=== PATIENT | female | born 1975 | race Caucasian/White ===

== ENCOUNTER 2024-08-02 11:17 | Inpatient (IN) | payer BC, SELFPAY ==
[2024-08-02] VITALS (13 sets, daily range): BP systolic 112–133; BP diastolic 80–98; BMI 23.6; BMI 24.1
--- NOTE | 2024-08-02 08:09 | CON.NEURO ---
Consultation
Order
Date of Consultation: 08/02/24
Requesting Provider: Marlon Tovar MD
Reason for Consult: Stroke alert
pre hospital notification: 7:50 AM
Neurology Consultation Note.
HPI: This is a 49-year-old woman who presented to [facility] with vertigo, imbalance and left-sided motor/sensory deficits. According to the patient she woke up at 5:45 AM in the morning with 'vertigo 'and associated imbalance. She
noted her left side being numb in the car on the way to work prompting her to call EMS at 7:27 AM. Last time seen in the usual state of health�the evening of 08/01/24.
Ms. Estrada states that she started hormonal replacement therapy on 07/27/2024.
As per EMS FS was 174 mg/dL and BP 150s/70s mmHg
ER VS: 125/80, 79, afebrile.
EKG:NSR, QTc Int : 472 ms
Labs: Glucose�157, WBCs�11.4, MCV�100, sodium�131,
CT head wo contrast-no acute abnormalities.
CTA head/neck-no LVO, left vertebral artery occlusion.
PMH: ADHD, insomnia, premenopause, GERD
SH: , light smoker, no history of excessive alcohol use.
FH: father�stroke
All:NKDA
ROS: Positive for left-sided numbness, language dysfunction, vertigo, ataxia
General: Well developed. In no acute distress.
Cardio: Regular rate and rhythm. Extremities are without cyanosis or edema.
Neuro:
Mental Status: Alert, oriented to self, place. Poor attention. Mild expressive aphasia (hand instead of global). Intermittent perseverations. Nonfluent. Follows simple requests. No hemineglect.
Cranial Nerves: Pupils are equally round and reactive to light. EOMs full. Visual sanchez full to confrontation. Face symmetric. Normal hearing AU. No dysarthria.
Motor: Left arm�drift to the bed but does not hit bed in 10 seconds. Left leg�drifts to the bed in less than 5 seconds. Right arm and leg�full strength.
Sensory: Limited due to poor attention.
Coordination: Left dysmetria in proportion to left arm weakness.
Gait: deferred
Assessment and Plan:
I. Acute basial artery distribution stroke. Likely etiology-embolic. Not a candidate for IV TNK due to timing of symptoms onset.
II. Left vertebral artery occlusion.
III. Hyperglycemia
IV. Prolonged QTc interval
-Continue Telemetry monitoring.
-Aspiration precautions.
-TTE with bubble studies
-Start ASA 81 mg QD indefinitely.
-Plavix load followed by Plavix 75 mg QD for 21 days.
-Lipitor 40 mg QHS.
-Please check HbA1C, LDL, ua tox
-D/c HRT
-PT.
-DVT prophylaxis.
I personally reviewed all radiology and labs along with past medical records pertinent to current medical problems. Total time spent in patient care is 60 minutes.
Thank you for allowing us to participate in the care of this patient. We will continue to follow. Please do not hesitate to contact us with any questions or concerns.
Subjective/Objective
Subjective Data
Date of Service: August 02, 2024
Objective Data
Vital Signs
Pulse Resp Pulse Ox
79 15 99
08/02/24 08:05 08/02/24 08:05 08/02/24 08:05
Patient Allergies
No Known Allergies Allergy (Unverified 08/02/24 08:05)
Medications
-
Home Medications
�Medication �Instructions �Recorded
esomeprazole magnesium 40 mg 40 mg PO DAILY 08/02/24
capsule,delayed release (Nexium)
estradiol 1 mg tablet 1 mg PO DAILY 08/02/24
eszopiclone 3 mg tablet (Lunesta) 3 mg PO HSPRN PRN sleep 08/02/24
famotidine 40 mg tablet (Pepcid) 40 mg PO HS 08/02/24
lisdexamfetamine 40 mg capsule 40 mg PO DAILY 08/02/24
(Vyvanse)
spironolactone 50 mg tablet 50 mg PO DAILY 08/02/24
Vital Signs and Labs
-
Vital Signs and Labs:
Vital Signs
Temp Pulse Resp BP Pulse Ox
36.6 C 84 19 125/80 99
08/02/24 08:29 08/02/24 08:16 08/02/24 08:16 08/02/24 08:22 08/02/24 08:05
Lab Results
08/02/24 08:24
08/02/24 08:24
Sodium 131 mmol/L (135-145) L 08/02/24 08:24
Potassium 4.3 mmol/L (3.5-5.1) 08/02/24 08:24
BUN 17 mg/dl (7-17) 08/02/24 08:24
Glucose 157 mg/dl (70-99) H 08/02/24 08:24
Calcium 8.5 mg/dl (8.4-10.2) 08/02/24 08:24
Home Medications
-
Home Medications
diphenhydramine 25 mg-acetaminophen 500 mg tablet (Acetaminophen PM) 1 tab PO HSPRN PRN sleep 08/02/24
esomeprazole magnesium 40 mg capsule,delayed release (Nexium) 40 mg PO DAILY 08/02/24
estradiol 1 mg tablet 1 mg PO DAILY 08/02/24
eszopiclone 3 mg tablet (Lunesta) 3 mg PO HS 08/02/24
famotidine 40 mg tablet (Pepcid) 40 mg PO HS 08/02/24
lisdexamfetamine 40 mg capsule (Vyvanse) 40 mg PO DAILY 08/02/24
spironolactone 50 mg tablet 50 mg PO DAILY 08/02/24
[2024-08-02 08:17] LABS: Glucose - Point of Care 152 mg/dl (70-99)
[2024-08-02 08:34] LABS: % Basophils 0.4 % (0-2); % Eosinophils 0.7 % (0-6); % Immature Granulocytes 0.6 % (0-0.5); % Lymphocytes 21.5 % (20.5-51.1); % Monocytes 6.2 % (1.7-9.3); % Neutrophils 70.6 % (42.2-75.2); Absolute Basophils 0.1 10^3/uL (0-0.2); Absolute Eosinophils 0.1 10^3/uL (0-0.7); Absolute Immature Granulocytes 0.1 10^3/uL (0-0.05); Absolute Lymphocytes 2.5 10^3/uL (1.2-3.4); Absolute Monocytes 0.7 10^3/uL (0.1-0.6); Hematocrit 36.3 % (37.0-47.0); Hemoglobin 12.6 g/dL (12.0-16.0); Mean Corp Hgb Conc. 34.7 g/dL (33.0-37.0); Mean Corpuscular Hgb 34.7 pg (27.0-31.0); Mean Platelet Volume 10.3 fL (7.4-10.4); Nucleated Red Blood Cells % 0 %; Platelet Count 276 10^3/uL (130-400); Red Blood Cell Count 3.63 10^6/uL (4.20-5.40); White Blood Cell Count 11.4 10^3/uL (4.8-10.8)
[2024-08-02 08:51] LABS: ALT (SGPT) 32 U/L (0-35); AST (SGOT) 31 U/L (14-36); Albumin 3.5 g/dl (3.5-5.0); Alkaline Phosphatase 81 U/L (38-126); Blood Urea Nitrogen 17 mg/dl (7-17); Calcium 8.5 mg/dl (8.4-10.2); Carbon Dioxide 24 mmol/L (22-30); Chloride 100 mmol/L (98-107); Glucose 157 mg/dl (70-99); Potassium 4.3 mmol/L (3.5-5.1); Sodium 131 mmol/L (135-145); Total Bilirubin 0.3 mg/dl (0.2-1.3); Total Protein 5.8 g/dl (6.3-8.2); eGFR > 60.00
--- NOTE | 2024-08-02 08:59 | ED.CVA ---
History of Present Illness
General
Chief Complaint: CVA/TIA Symptoms
Source: patient and ambulance crew
Exam Limitations: none
Time Seen by Provider: 08/02/24 07:56
Nursing documentation reviewed up to this point in time: agreed with
Onset of Stroke Symptoms
Onset of symptoms known: Yes
Date of onset of symptoms: 08/02/24
History of Present Illness
History of Present Illness:
49-year-old female with a past medical history of GERD presents to the ER for evaluation of left-sided weakness and dizziness; presents via EMS as a prehospital stroke alert. Patient reports that she woke up this morning and she felt dizzy when she
was putting on her shoes like she was off balance. She said she had some nausea and vomiting. She says that she tried to drive herself to work but on the way to work she started to develop left arm weakness and paresthesias. She pulled over and
called EMS. Per EMS she was having some repetitive questioning and expressive aphasia and they thought that her speech was slightly slurred and she had a slight left facial droop. Patient cannot remember what time she went to bed last night. She
says this is never happened before. She is not on any blood thinners; only new medication is estradiol which she started for hormone replacement therapy 2 days ago.
Review of Systems
Review of Systems
All Other Systems: ROS reviewed and negative except as documented in HPI and ROS
Constitutional: Denies fever
Respiratory: Denies trouble breathing
Cardiac: Denies chest pain
ABD/GI: Denies abdominal pain
: Denies flank pain
Musculoskeletal: Denies neck pain or back pain
Neurological: Reports dizzy, weakness and numbness; Denies headache
Phy Exam
Physical Exam
Physical Exam:
General: Awake, alert, oriented x3; no acute distress
Head: Normocephalic, atraumatic
Eyes: Conjunctiva normal, EOMI, pupils equal round and reactive to light bilaterally
Throat: Airway intact, handling secretions
Neck: Trachea midline, supple without meningismus
Lungs: Clear to auscultation bilaterally, no wheezing, rales, rhonchi
Heart: Regular rate and rhythm, no murmurs, gallops, or rubs
Abd: Soft, non distended, nontender
Neuro: Very subtle droop at the corner of the mouth on the left; very mild expressive aphasia, no dysarthria; slight drift in the left upper and left lower extremity
Skin: no rash
Extremities: No edema in extremities, equal pulses in all extremities
Scores
NIH Stroke Score
Level of Consciousness: 0 - Alert
LOC Questions: 0-Answers both correctly
LOC Commands: 0-Performs both correctly
Best Horizontal Gaze: 0-Normal
Visual Sinclair: 0=Normal, no visual loss
Facial Palsy: 1=Minor paralysis
Motor - Right Arm: 0=No drift 10 seconds
Motor - Left Arm: 1=Drift < 10 seconds
Motor - Right Le-No drift 5 seconds
Motor - Left Le-Drift < 5 seconds
Limb Ataxia: 0-Absent
Sensation: 0-Normal
Best Language: 1-Mild aphasia
Dysarthria: 0-Normal
Extinction and Inattention: 0-No abnormality
Total Score:: 4
Thrombolytic Contraindication
Inclusion and Exclusion criteria reviewed: Yes
Reasons for NON-Tx with Thrombolytics ABSOLUTE Exclusions: Greater than 4.5 hrs from onset of sxs
Heart Failure Risk
Heart Failure Risk Score: Not Applicable
Heart Score for Chest Pain Patients
STEMI patient?: Not applicable
Withdrawal Assessment of Alcohol
Withdrawal Assessment Completed?: Not applicable
Course
Orders/Labs/Results
Orders:
Orders
08/02/24 07:56
Electrocardiogram (*1) Stat
Reason for Study: Other
Other Reason for Exam: neuro symptoms
CT HEAD STROKE ALERT W/o Cont Urgent
Comment:
Reason For Exam: L weakness, aphasiam, L facial droop
CT HEAD/NECK ANG STROKE ALERT Urgent
Comment:
Reason For Exam: L weakness, aphasiam, L facial droop
Bedside Glucose- Treatment ONCE
Cardiac Monitoring- Treatment ONCE
EKG- Treatment ONCE
IV Insert/Care/Rem.- Treatment PRN
08/02/24 07:57
NEUROLOGY CONSULT Urgent
Consulting Provider: Yesica Boston
Was physician already notified: Yes
08/02/24 08:24
Complete Blood Count/With Diff Urgent
Comprehensive Metabolic Panel Urgent
08/02/24 08:58
Aspirin 325 mg PO NOW STA
Clopidogrel Bisulfate [Plavix] 75 mg PO NOW STA
Abnormal Lab Results
08/02/24 08/02/24
08:15 08:24
WBC 11.4 H 10^3/uL
(4.8-10.8)
RBC 3.63 L 10^6/uL
(4.20-5.40)
Hct 36.3 L %
(37.0-47.0)
MCV 100.0 H fL
(81.0-99.0)
MCH 34.7 H pg
(27.0-31.0)
Abs Immat Gran (auto) 0.1 H 10^3/uL
(0-0.05)
Absolute Neuts (auto) 8.0 H 10^3/uL
(1.4-6.5)
Absolute Monos (auto) 0.7 H 10^3/uL
(0.1-0.6)
Immature Gran % 0.6 H %
(0-0.5)
Sodium 131 L mmol/L
(135-145)
Glucose 157 H mg/dl
(70-99)
Total Protein 5.8 L g/dl
(6.3-8.2)
POC Glucose 152 H mg/dl
(70-99)
08/02/24 08:24
08/02/24 08:24
Vital Signs
Initial and Last Documented VS:
Initial Vital Signs
Pulse Resp Pulse Ox
79 15 99
08/02/24 08:05 08/02/24 08:05 08/02/24 08:05
Last Documented Vital Signs
Temp Pulse Resp BP Pulse Ox
36.6 C 84 19 125/80 99
08/02/24 08:29 08/02/24 08:16 08/02/24 08:16 08/02/24 08:22 08/02/24 08:05
MDM/Problems Addressed
Differential Diagnosis Includes:
Stroke, seizure, brain mass, MS, complex migraine
MDM/Problems Addressed:
49-year-old female presents as a prehospital stroke alert�woke up with dizziness which progressed to left arm weakness and numbness and speech difficulties. Vitals and exam as above. She was taken directly for CT CT head negative for any acute
pathology. Seen by neurology at bedside proceeded with CTA head and neck which showed small vertebral occlusion which reconstitutes distally unclear chronicity. No other acute pathology noted. Usual labs sent off and no clinically significant
abnormalities. Her symptoms have slightly improved but not resolved. Discussed with neurology at length about possibility of tenecteplase treatment�unfortunately with wake-up symptoms and unclear onset patient not a good candidate for tenecteplase
and neurology recommended holding off. Will instead treat with aspirin and Plavix. Admit for continued neurochecks and workup. Case discussed with hospitalist.
Chronic conditions affecting care:
Hormone replacement therapy�high risk for thrombosis
*Radiology
Radiology exam reviewed: radiology read reviewed
*Pulse Oximetry
Patient hypoxic: no
*Critical Care Note
Total Time (30-74mins, 75-104mins- exclusive of procedures): Not Applicable
Data Reviewed
Source: patient and ambulance crew
Prescriptions/Medications Considered But Not Given:
Consider tenecteplase as above
Patient Management
Discussion with other providers: Hospitalist (Discussed with hospitalist), Cad Drafter (Discussed with neurologist) and Radiologist (Discussed with radiologist)
Escalation/DeEscalation of care consider admission/obs:
Admission indicated
ED Attending Note
-
Portions of this chart may have been created with voice recognition software.� Occasional wrong word or��sound alike� substitutions may have occurred due to the inherent limitations of voice recognition software.
Discharge Plan
Departure
Patient Disposition: Admit
Date of Disposition: 08/02/24
Time of Disposition: 08:58
Admit to doctor: Landon
Presentation/result/management discussed w/ accepting MD/DO: Hospitalist
Discharge Problem:
Acute CVA (cerebrovascular accident)
Prescriptions:
No Action
famotidine [Pepcid] 40 mg Tablet
40 mg PO HS
estradiol 1 mg Tablet
1 mg PO DAILY
esomeprazole magnesium [Nexium] 40 mg Capsule,Delayed Release(Dr/Ec)
40 mg PO DAILY
spironolactone 50 mg Tablet
50 mg PO DAILY
eszopiclone [Lunesta] 3 mg Tablet
3 mg PO HS
lisdexamfetamine [Vyvanse] 40 mg capsule
40 mg PO DAILY
diphenhydramine-acetaminophen [Acetaminophen PM] 25-500 mg Tablet
1 tab PO HSPRN PRN (Reason: sleep)
Interventions
Interventions:
ED- Fall Risk Assessment Last Done: 08/02/24 08:29
*ED COVID-19 Vaccine History Last Done: 08/02/24 08:14
ED- Pulmonary Assessment Last Done: 08/02/24 08:02
ED- Neurological Assessment Last Done: 08/02/24 08:14
ED- Cardiac Assessment Last Done: 08/02/24 08:22
ED Swallowing Screen Last Done: 08/02/24 09:00
Discharge Date and Time
Print Language: KISWAHILI
[2024-08-02] MEDS: PLAVIX 75 MG PO (09:02)
[2024-08-02] MEDS: ASPIRIN 325 MG PO (09:03)
[2024-08-02 10:28] LABS: TSH Reflex To Free T4 1.35 uIU/ml (0.47-4.68)
[2024-08-02] MEDS: ZOFRAN 4 MG IV ×2 (11:04→19:35)
[2024-08-02 11:23] LABS: HDL Cholesterol 49 mg/dl; LDL Cholesterol, Calculated 127 mg/dl; Total Cholesterol 199 mg/dl (50-199); Triglyceride 119 mg/dl (10-149); Very Low Density Lipoprotein 23 mg/dl (0-30)
[2024-08-02] MEDS: MOTRIN 200 MG PO (11:25)
[2024-08-02 11:51] LABS: Glycohemoglobin (HgbA1c) 5.3 % (4.0-5.6)
--- NOTE | 2024-08-02 12:07 | HPS.HSE ---
Family Physician
-
Family Physician: Suman Alexandre
Chief Complaint
-
Dizziness and left-sided paresthesias
History of Present Illness
Ms. Estrada is a 49-year-old female with a medical history of GERD and ADHD who presented with dizziness and left-sided paresthesias. She first noticed her symptoms after getting out of bed in the morning and was having balance difficulties
walking down the hallway, she fell that she kept leaning to 1 side. She then felt particularly dizzy when bending over to tie her shoes. She denies initial headaches, blurry vision, chest pain, focal weakness, or difficulty breathing. However,
when driving to work she developed left chest discomfort that radiated down her left arm and was also present in her left leg. She describes the discomfort as tingling but she did not experience any weakness. When she arrived at work, she called
EMS who transported her to [facility]. Per EMS, she had some repetitive questioning and expressive aphasia, and reported mild left-sided facial droop. Of note she recently was started on estradiol hormone replacement therapy this past
July 27. She denies any recent illness or sick contacts. She denies tinnitus, hearing loss, sinus congestion, or fullness in her ears. She denies any surgical history. She is a half a pack per day current smoker x 20 years. She
denies alcohol use. Family history is significant for father with multiple CVAs who ultimately of complications from strokes in his early 60s.
In the ED, she was hemodynamically stable. A prehospital stroke alert had been called. Her NIH stroke score was 4, minor left facial droop, mild left arm drift, mild left leg drift, mild aphasia. CT imaging of her head and neck showed small
caliber left vertebral artery occlusion just distal to its origin with reconstitution in C1, otherwise normal. Thrombolytics were contraindicated considering unclear time of symptom onset. She was loaded with aspirin and Plavix. Labs were
remarkable for mild hyponatremia with a sodium of 131 and a mild leukocytosis of 11.4. She developed worsening dizziness with associated nausea in the ED and had an episode of vomiting, after which she developed a left-sided headache. She has now
been admitted for further evaluation and management of suspected CVA.
Medical History
Past Medical History
Past Medical History: Reports GERD and Other (ADHD)
Past Surgical History: Reports None
Social History
Tobacco: Smoker (Half a pack per day x 20 years)
Alcohol: Occasional
Drug: None
Personal:
Living: With Family
Employment: Employed
Family History
Family History: Other (Father had multiple strokes before age 65, ultimately from complications of strokes)
Allergies / Home Medications
Allergies reflects when Allergies were last updated in [employer].
Home Medications with original date entered in [employer]
Allergy/Medication List:
No known allergies
Review of Systems
-
History Source: Patient
A 12 point ROS was completed and negative except as noted: Yes
Abdomen/GI: Reports Nausea and Vomiting
Neurological: Reports Dizzy, Headache and Numbness (Left upper or lower extremities)
Physical Exam
Vital Signs
Vital Signs
Temp Pulse Resp BP Pulse Ox
97.5 F 73 23 120/80 99
08/02/24 10:03 08/02/24 11:00 08/02/24 11:00 08/02/24 11:00 08/02/24 11:00
Physical Exam
General: Well Developed and Well Nourished
HEENT: NormoCephalic and Atraumatic
Respiratory: Clear and Non Labored Respirations
Cardiac: S1/S2 and Regular Rhythm
GI: Soft and Non Tender
Musculoskeletal: No Cyanosis and No Edema
Skin: Warm and Dry
Neuro: Awake, Alert and Nonfocal/grossly intact
Laboratory Results
-
08/02/24 08:24
08/02/24 08:24
Laboratory Results
Total Bilirubin 0.3 mg/dl (0.2-1.3) 08/02/24 08:24
AST 31 U/L (14-36) 08/02/24 08:24
ALT 32 U/L (0-35) 08/02/24 08:24
Alkaline Phosphatase 81 U/L (38-126) 08/02/24 08:24
Impression/Plan
-
Gen-AAOx3, NAD
HEENT-NC, AT, anicteric, clear oral mm
Neck-supple
CV-reg, no M, +S1/S2
Lungs-clear B/L
Abd-soft, NT, ND
Musculoskeletal-no edema, no deformity
Skin-warm and dry
Neuro-grossly non-focal
Psych-calm, cooperative
Ms. Estrada is a 49-year-old female with a medical history of GERD and ADHD who presented with dizziness and left-sided paresthesias. She first noticed her symptoms after getting out of bed in the morning and was having balance difficulties
walking down the hallway, she fell that she kept leaning to 1 side. She then felt particularly dizzy when bending over to tie her shoes. When driving to work she developed left chest tingling that radiated down her left arm and was also present in
her left leg. When she arrived at work, she called EMS who transported her to [facility]. Per EMS, she had some repetitive questioning and expressive aphasia, and reported mild left-sided facial droop. Of note she recently was started on
estradiol hormone replacement therapy this past July 27.
In the ED, she was hemodynamically stable. A prehospital stroke alert had been called. Her NIH stroke score was 4, minor left facial droop, mild left arm drift, mild left leg drift, mild aphasia. CT imaging of her head and neck showed small
caliber left vertebral artery occlusion just distal to its origin with reconstitution in C1, otherwise normal. Thrombolytics were contraindicated considering unclear time of symptom onset. She was loaded with aspirin and Plavix. Labs were
remarkable for mild hyponatremia with a sodium of 131 and a mild leukocytosis of 11.4. She developed worsening dizziness with associated nausea in the ED and had an episode of vomiting, after which she developed a left-sided headache. She has now
been admitted for further evaluation and management of suspected CVA.
Dizziness and left-sided paresthesias:
-Concern for CVA
-CT imaging shows small caliber left vertebral artery occlusion just distal to its origin with reconstitution in C1, otherwise normal
-Loaded with aspirin and Plavix in the ED
-Will obtain MRI brain
-Follow-up further recommendations from neurology
-PT/OT
-Supportive care with antiemetics and meclizine as needed
-Recommend discontinuing estradiol supplementation for now, which she had been taking for control of perimenopausal symptoms
Tobacco use:
-Encourage smoking cessation, nicotine patch provided
CODE STATUS: Full code
[2024-08-02] MEDS: NSS (PRESERVATIVE FREE) 0.5 ML IV (12:52)
[2024-08-02] MEDS: ATIVAN 1 MG IV (12:52)
--- NOTE | 2024-08-02 13:00 | PTCARENOTE ---
Received pt from ED. Assist from stretcher to bed, L sided weakness and ataxia of L leg noted. Pt AOx3. NIHSS of 1. Denies MOSES or dizziness. VSS. MRI ordered, pt states she requires Ativan prior to study. notified. 1mg IV Ativan given and pt sent
to MRI.
--- NOTE | 2024-08-02 15:44 | PTOTSP ---
Speech Therapy Assessment
Oral/pharyngeal swallowing, and expressive and receptive language skills deemed within functional limits.
Recommend:
Continue current diet of regular solids and thin liquids
No skilled ST indicated.
Information provided to patient regarding possible high level cognitive deficits that may be noted after returning to regular routine that could be addressed with a comprehensive assessment in outpatient setting.
--- NOTE | 2024-08-02 16:00 | PTCARENOTE ---
Dr Thomas at bedside to discuss MRI results to pt and family.
[2024-08-02 16:25] LABS: Amphetamines Positive (Negative); Barbiturates Negative (Negative); Benzodiazepines Positive (Negative); Buprenorphine Negative (Negative); Cocaine Negative (Negative); Marijuana Negative (Negative); Methadone Negative (Negative); Methamphetamines Negative (Negative); Opiates Negative (Negative); Phencyclidine Negative (Negative); Tricyclic Antidepressants Negative (Negative)
[2024-08-02 16:43] LABS: Fentanyl, Urine Negative (Negative)
[2024-08-02] MEDS: LOVENOX 40 MG SC (17:07)
[2024-08-02] MEDS: LIPITOR 40 MG PO (17:07)
--- NOTE | 2024-08-02 17:30 | W.PN.UPDATE ---
Update Note
Progress Note Update
Brain MRI showed a large left cerebellar hemisphere infarct.
Recommend ICU transfer for hydrocephalus which. Patient's attending and nurse were notified.
Filiberto Boston
Neurology
--- NOTE | 2024-08-02 18:00 | PTCARENOTE ---
Dr Boston requesting pt be transferred to ICU for closer monitor. Hospitalist made aware. Nursing supervisor channel process notified. Awaiting orders.
[2024-08-02] MEDS: TYLENOL 650 MG PO (19:01)
--- NOTE | 2024-08-02 20:15 | PTCARENOTE ---
Pt arrived to ICU room 3358 from 1 Acute via stretcher at approx 1915. Pt is A/O x4. Q1 hour neurological checks ordered, NIH score is 0 at this time. See stroke/neuro flowsheet for full details. Pt oriented to room and call sawyer. Physical
assessment completed, see nursing shift assessment flowsheet for full details. Pt experiencing nausea and has vomited x2 so far since arrival to ICU, medicated with PRN Zofran, see EMAR.
[2024-08-03] VITALS (24 sets, daily range): BP systolic 121–151; BP diastolic 80–97; PULSE 83–84; O2SAT 96; BMI 23.8
[2024-08-03] MEDS: ULTRAM 50 MG PO (00:52)
--- NOTE | 2024-08-03 01:08 | PTCARENOTE ---
Physical and neurological assessments unchanged. Pt reports headache which she has had most of the shift, Tylenol did not help at all, discussed with Orville JOEL, x1 order for Tramadol obtained, med administered, see EMAR. Pt now resting with
eye mask on, lights off.
[2024-08-03] MEDS: PROTONIX 40 MG PO (03:19)
[2024-08-03 05:02] LABS: % Basophils 0.4 % (0-2); % Eosinophils 0.4 % (0-6); % Immature Granulocytes 0.4 % (0-0.5); % Lymphocytes 18.6 % (20.5-51.1); % Neutrophils 73.2 % (42.2-75.2); Absolute Basophils 0.1 10^3/uL (0-0.2); Absolute Eosinophils 0.1 10^3/uL (0-0.7); Absolute Immature Granulocytes 0.1 10^3/uL (0-0.05); Absolute Lymphocytes 2.6 10^3/uL (1.2-3.4); Absolute Neutrophils 10.2 10^3/uL (1.4-6.5); Hematocrit 38.8 % (37.0-47.0); Hemoglobin 13.3 g/dL (12.0-16.0); Mean Corp Hgb Conc. 34.3 g/dL (33.0-37.0); Mean Corpuscular Volume 99.2 fL (81.0-99.0); Mean Platelet Volume 10.3 fL (7.4-10.4); Nucleated Red Blood Cells % 0 %; Platelet Count 295 10^3/uL (130-400); Red Blood Cell Count 3.91 10^6/uL (4.20-5.40); Red Cell Dist. Width 11.9 % (11.5-14.5); White Blood Cell Count 13.9 10^3/uL (4.8-10.8)
[2024-08-03 05:20] LABS: Blood Urea Nitrogen 16 mg/dl (7-17); Calcium 9.1 mg/dl (8.4-10.2); Carbon Dioxide 23 mmol/L (22-30); Chloride 97 mmol/L (98-107); Estimated Creatinine Clearance 81 ml/min; Glucose 94 mg/dl (70-99); Potassium 4.4 mmol/L (3.5-5.1); Sodium 130 mmol/L (135-145); eGFR > 60.00
[2024-08-03 05:21] LABS: INR 0.94; PT 13.1 Sec (11.4-14.6)
[2024-08-03 06:02] LABS: APTT 28.1 Sec (23.4-35.0)
--- NOTE | 2024-08-03 06:24 | PTCARENOTE ---
Assessment unchanged, neurological assessment unchanged. SR 70s on monitor.
[2024-08-03] MEDS: PLAVIX 75 MG PO (07:31)
[2024-08-03] MEDS: LOW STRENGTH ASPIRIN 81 MG PO (07:31)
[2024-08-03] MEDS: ALDACTONE 50 MG PO (07:31)
--- NOTE | 2024-08-03 07:42 | CON.INTV ---
Consultation
Consultation Request
Date/Time Consultation Requested: 08/03/2024-7:30 AM
Date/Time Consultation Performed: 08/03/2024-7:30 AM
Requesting Provider: Hospitalist
Performing Provider: Dr. Green
Reason for Consultation: CVA/critical care management
Medical History
-
Chief Complaint: Dizziness and left-sided paresthesias
History of Present Illness:
49-year-old smoking female with a history of insomnia, GERD, ADHD who presented with sudden onset dizziness and left-sided paresthesias found to have cerebellar CVA and jigman consulted for CVA/critical care management 08/03/2024. Patient
continues to complain of a headache, very mild nausea, dizziness improved, no shortness of breath at rest, chest congestion, productive cough, wheezing, chest pain, abdominal pain, leg swelling or focal weakness
Past Medical History
Past Medical History: None (GERD. Cigarette smoker. ADHD.)
Social History
Tobacco: Smoker (1/2-3/4 pack cigarettes daily for 30 years)
Alcohol: Occasional
Drug: None
Personal:
Living: With Family
Occupational Exposures: No known asbestos exposure
Environmental Exposures: No known tuberculosis exposure
Family History
Family History: Other (Father-multiple strokes before age 65)
Allergies / Home Medications
Allergies
Allergy/AdvReac Type Severity Reaction Status Date / Time
No Known Allergies Allergy Unverified 08/02/24 08:05
Home Medications
�Medication �Instructions �Recorded �Confirmed �Last Taken �Type
diphenhydramine 25 1 tab PO HSPRN PRN sleep 08/02/24 08/02/24 08/01/24 History
mg-acetaminophen 500 mg tablet
(Acetaminophen PM)
esomeprazole magnesium 40 mg 40 mg PO DAILY Gastrointestinal 08/02/24 08/02/24 08/02/24 History
capsule,delayed release (Nexium) Issue
estradiol 1 mg tablet 1 mg PO DAILY Hormonal Agent 01/08/02/24 08/02/24 History
eszopiclone 3 mg tablet (Lunesta) 3 mg PO HS Sleep 08/02/24 08/02/24 08/01/24 History
famotidine 40 mg tablet (Pepcid) 40 mg PO HS Gastrointestinal Issue 08/02/24 08/02/24 Unknown History
lisdexamfetamine 40 mg capsule 40 mg PO DAILY Neurological 08/02/24 08/02/24 08/02/24 History
(Vyvanse) Condition
spironolactone 50 mg tablet 50 mg PO DAILY Blood Pressure 08/02/24 08/02/24 08/02/24 History
Review of Systems
-
Unable to Obtain full review of systems at this time due to: Other (Per HPI)
Vitals / Labs / Diagnostic Testing
Vital Signs
Temp Pulse Resp BP Pulse Ox
98.3 F 84 24 125/91 94
08/03/24 07:33 08/03/24 07:31 08/03/24 06:01 08/03/24 07:31 08/03/24 05:00
Lab Data
08/03/24 04:37
08/03/24 04:37
Laboratory Results
08/03/24
04:37
PT 13.1
INR 0.94
APTT 28.1
Diagnostic Testing:
Physical Exam
-
Exam:
Well-nourished and well-developed in no apparent distress
HEENT-atraumatic, normocephalic
Neck-supple, no JVD, no bruit
Heart-regular rate and rhythm-no murmurs, rubs or gallops
Chest-clear to auscultation, no wheezes, crackles
Back-no tenderness
Abdomen-soft, nontender, nondistended, no hepatosplenomegaly
Extremities-no cyanosis, clubbing, edema and good peripheral pulses
Integument-intact, no rashes, lesions or ecchymosis
Neurology-alert and oriented, nonfocal motor and sensory exam
Assessment
-
49-year-old smoking female with a history of insomnia, GERD, ADHD who presented with sudden onset dizziness and left-sided paresthesias found to have cerebellar CVA and jigman consulted for CVA/critical care management 08/03/2024.
Acute/subacute left SCA/PICA infarct
Left vertebral artery occlusion
Leukocytosis
Conditions present prior to admission:
GERD.
Cigarette smoker.
ADHD.
Plan
Patient will closely be monitored in the medical intensive care unit-significant risk of edema/hydrocephalus
Supplement oxygen if needed
Aspiration precautions
Nebulizers if needed-currently not bronchospastic
Check chest x-ray
Neurology evaluation-correspondence reviewed
Neurochecks
Echocardiogram with bubble study
DAPT for 21 days
Lipitor
Check A1c
Eventual hematology consultation for hypercoagulable workup
Smoking cessation counseling provided
Nicotine patch if needed
Outpatient pulmonary follow-up including PFTs, ongoing smoking cessation counseling and evaluation for low-dose lung cancer screening CT
Critical care statement: A total of 55 minutes of critical care time was provided for this patient today. This includes management of unstable vital signs, evaluation of the patient at bedside, reviewing the patient's pertinent medical records
including radiographs, microbiology, laboratory evaluations, and discussion with primary team, consultants, pharmacy, nutrition, physical therapy, case management, charge nurse, critical care nursing, and respiratory therapy.
Diagnostic data:
Chest x-ray 08/03/2024-pending
CT head 08/02/2024-normal
CT head and neck angiogram 08/02/2024-small caliber left vertebral artery is occluded just distal to the origin
Brain MRI 08/02/2024-large acute infarct left cerebellar hemisphere, small region left lateral medulla may be secondary to subacute ischemia
Data Reviewed
-
EKG: Report reviewed by me
Radiology: Image personally visualized and interpreted and Report reviewed by me
CT Scan: Report reviewed by me
MRI: Report reviewed by me
Medical Tests (Nuc Med, Echo etc): Report reviewed by me
Labs: Labs reviewed by me
Old Records: Reviewed
Critical Care Time (in minutes): 55
--- NOTE | 2024-08-03 07:45 | PTCARENOTE ---
Received pt @ change of shift. AAOx3, NIH=0, Q1H neuro checks maintained- see flow sheet. C/O mild h/a, denies pain medication. SR on monitor. SpO2 95% on RA. Reports int nausea, none @ this time. Stand by assisted into BR and then into chair,
tolerating activity; gait steady. Skin c/d/i. Instructed on how to report care concerns and call sawyer in reach.
--- NOTE | 2024-08-03 09:49 | W.PN.NEURO.1 ---
Today's Communication / Plan
-
.
Subjective/Objective
Subjective Data
Date of Service: August 03, 2024
Neurology Follow up Note
24-hour events�transiently hypertensive up to 151/91, afebrile. Ms. Estrada reports moderate occipital headache with associated nausea. No change in vision, strength or coordination.
Brain MRI showed an acute left SCA/PICA infarct.
Labs: WBCs�13.9, sodium�130, Hemoglobin A1c�5.3, LDL�127, urine tox�positive for benzodiazepines(given in ER), amphetamines(prescribed)
CTA head/neck-no LVO, left vertebral artery occlusion.
PMH: ADHD, insomnia, premenopause, GERD
SH: , light smoker, no history of excessive alcohol use.
FH: father�stroke
All:NKDA
ROS: Positive for left-sided numbness, language dysfunction, vertigo, ataxia
General: Well developed. In no acute distress.
Cardio: Regular rate and rhythm. Extremities are without cyanosis or edema.
Neuro:
Mental Status: Alert, oriented to self, place. Good attention and comprehension. Follows simple requests consistently. No aphasia or hemineglect.
Cranial Nerves: Pupils are equally round and reactive to light. EOMs full. Visual sanchez full to confrontation. Face symmetric. Normal hearing AU. No dysarthria.
Motor: No pronator or arm drift. Full strength.
Sensory: Normal vibration at the toes
Coordination: No dysmetria on ijxvka-yv-[id number]. Normal fine finger movements.
Gait: deferred
NIH -0
Assessment and Plan:
I. Acute acute/sunacute left SCA/PICA infarct. Likely etiology-embolic versus artery to artery embolism. Hormone replacement therapy�increases the risk of stroke, especially in the first year of use.
II. Left vertebral artery occlusion.
III. Leukocytosis
-Continue ICU care given the size of the cerebellar infarct and the risk of edema/hydrocephalus given patient's age
-Aspiration precautions.
-TTE with bubble studies
-Continue DAPT for 21 days.
-Lipitor 40 mg QHS. LDL goal�<100.
-Please check HbA1C,
-Hematology consult for hypercoagulable workup
-DVT prophylaxis.
I personally reviewed all radiology and labs along with past medical records pertinent to current medical problems. Total time spent in patient care is 60 minutes.
Thank you for allowing us to participate in the care of this patient. We will continue to follow. Please do not hesitate to contact us with any questions or concerns.
Objective Data
Vital Signs
Temp Pulse Resp BP Pulse Ox
36.8 C 84 24 125/91 95
08/03/24 07:33 08/03/24 07:31 08/03/24 06:01 08/03/24 07:31 08/03/24 07:40
Lab Results
08/03/24 04:37
08/03/24 04:37
PT 13.1 Sec (11.4-14.6) 08/03/24 04:37
INR 0.94 08/03/24 04:37
APTT 28.1 Sec (23.4-35.0) 08/03/24 04:37
Sodium 130 mmol/L (135-145) L 08/03/24 04:37
Potassium 4.4 mmol/L (3.5-5.1) 08/03/24 04:37
BUN 16 mg/dl (7-17) 08/03/24 04:37
Glucose 94 mg/dl (70-99) 08/03/24 04:37
Calcium 9.1 mg/dl (8.4-10.2) 08/03/24 04:37
LDL Cholesterol, Calc Cancelled 08/02/24 10:33
Ur Buprenorphine Negative (Negative) 08/02/24 15:58
Patient Allergies
No Known Allergies Allergy (Unverified 08/02/24 08:05)
Vital Signs and Labs
-
Vital Signs and Labs:
Vital Signs
Temp Pulse Resp BP Pulse Ox
36.8 C 84 24 125/91 95
08/03/24 07:33 08/03/24 07:31 08/03/24 06:01 08/03/24 07:31 08/03/24 07:40
Lab Results
08/03/24 04:37
08/03/24 04:37
PT 13.1 Sec (11.4-14.6) 08/03/24 04:37
INR 0.94 08/03/24 04:37
APTT 28.1 Sec (23.4-35.0) 08/03/24 04:37
Sodium 130 mmol/L (135-145) L 08/03/24 04:37
Potassium 4.4 mmol/L (3.5-5.1) 08/03/24 04:37
BUN 16 mg/dl (7-17) 08/03/24 04:37
Glucose 94 mg/dl (70-99) 08/03/24 04:37
Calcium 9.1 mg/dl (8.4-10.2) 08/03/24 04:37
LDL Cholesterol, Calc Cancelled 08/02/24 10:33
Ur Buprenorphine Negative (Negative) 08/02/24 15:58
Medications
-
Medications:
Generic Name Dose Route Start Last Admin
Trade Name Freq PRN Reason Stop Dose Admin
Acetaminophen 650 mg 08/02/24 12:11 08/02/24 19:01
Acetaminophen 325 Mg Tablet PO 08/30/24 12:10 650 mg
Q4HPRN PRN Administration
mild pain/MOSES/temp> 100.4F
Aspirin 81 mg 08/03/24 08:00 08/03/24 07:31
Aspirin 81 Mg Chewable Tablet PO 08/31/24 07:59 81 mg
DAILY ELADIO Administration
Atorvastatin Calcium 40 mg 08/02/24 18:00 08/02/24 17:07
Atorvastatin (Lipitor) 40 Mg Tablet PO 08/30/24 17:59 40 mg
QPM ELADIO Administration
Bisacodyl 10 mg 08/02/24 12:11
Bisacodyl 10 Mg Rectal Suppository RECTAL 08/30/24 12:10
[id number] PRN
constipation
Clopidogrel Bisulfate 75 mg 08/03/24 08:00 08/03/24 07:31
Clopidogrel 75 Mg Tablet PO 08/31/24 07:59 75 mg
DAILY ELADIO Administration
Diphenhydramine HCl 25 mg 08/03/24 09:50
Diphenhydramine 50 Mg/Ml 1 Ml Vial IV 08/31/24 09:49
Q6HPRN PRN
headache
Enoxaparin Sodium 40 mg 08/02/24 18:00 08/02/24 17:07
Enoxaparin Sodium 40 Mg/0.4 Ml Syringe SC 08/30/24 17:59 40 mg
QPM ELADIO Administration
Ketorolac Tromethamine 15 mg 08/03/24 09:49
Ketorolac 15 Mg/Ml Injection IV 08/08/24 09:48
Q6HPRN PRN
headache
Meclizine HCl 12.5 mg 08/02/24 15:25
Meclizine 12.5 Mg Tablet PO 08/30/24 15:24
Q8HPRN PRN
dizziness
Metoclopramide HCl 10 mg 08/03/24 09:49
Metoclopramide 10 Mg/2 Ml Vial IV 08/31/24 09:48
Q6HPRN PRN
nausea
Nicotine 7 mg 08/02/24 16:00 08/03/24 07:31
Nicotine 7 Mg Patch TRANSDERM 08/30/24 15:59 Not Given
DAILY ELADIO
Non-Formulary Medication 1 tablet 08/02/24 12:11
Diphenhydramine-Acetaminophen [Acetaminophen Pm] PO
HSPRN PRN
sleep
Non-Formulary Medication 3 mg 08/02/24 22:00
Eszopiclone [Lunesta] PO 08/30/24 21:59
HS ELADIO
Non-Formulary Medication 40 mg 08/03/24 08:00
Lisdexamfetamine [Vyvanse] PO 08/31/24 07:59
DAILY ELADIO
Patch Removal 0 patch 08/02/24 22:00 08/02/24 19:32
Remove Nicotine Patch REMOVE 08/30/24 21:59 Not Given
HS ELADIO
Polyethylene Glycol 17 grams 08/02/24 12:11
Polyethylene Glycol Powder 17 Grams Packet PO 08/30/24 12:10
DAILYPRN PRN
constipation
Senna/Docusate Sodium 1 tablet 08/02/24 12:11
Docusate W/Senna (Willa-Colace) Tablet PO 08/30/24 12:10
BIDPRN PRN
constipation
Sodium Chloride 0 flush 08/03/24 01:00
Sodium Chloride 0.9% (Flush) Syringe IV 08/31/24 00:59
PER PROTOCOL ELADIO
Spironolactone 50 mg 08/03/24 08:00 08/03/24 07:31
Spironolactone 50 Mg Tablet PO 08/31/24 07:59 50 mg
DAILY ELADIO Administration
Home Medications
-
Home Medications
diphenhydramine 25 mg-acetaminophen 500 mg tablet (Acetaminophen PM) 1 tab PO HSPRN PRN sleep 08/02/24
esomeprazole magnesium 40 mg capsule,delayed release (Nexium) 40 mg PO DAILY Gastrointestinal Issue 08/02/24
estradiol 1 mg tablet 1 mg PO DAILY Hormonal Agent 08/02/24
eszopiclone 3 mg tablet (Lunesta) 3 mg PO HS Sleep 08/02/24
famotidine 40 mg tablet (Pepcid) 40 mg PO HS Gastrointestinal Issue 08/02/24
lisdexamfetamine 40 mg capsule (Vyvanse) 40 mg PO DAILY Neurological Condition 08/02/24
spironolactone 50 mg tablet 50 mg PO DAILY Blood Pressure 08/02/24
[2024-08-03] MEDS: TYLENOL 650 MG PO (10:28)
--- NOTE | 2024-08-03 11:37 | PTCARENOTE ---
Neuro assessment remains unchanged from previous. Pt. back to bed and ECHO w bubble study in progress. Call sawyer remains w in reach.
--- NOTE | 2024-08-03 11:56 | PTCARENOTE ---
Bubble study completed with Rivka cytotechnologist/cytology supervisor.
--- NOTE | 2024-08-03 12:27 | CM ---
CM following re: discharge planning.
Reviewed pt's chart, met with pt.
Pt is a 49 year old female, admitted with primary dx of Acute CVA.
Pt reports she lives with in a 2SH twin tracey=use in [place], 3 steps to enter, has supportive stepson. 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
PT and OT evaluations noted - outpatient therapy vs no needs recommended. Pt is aware, expressed her agreement and she stated she will see when she goes home and f she feels she needs outpatient PT/OT she will go.
Pt will need a script for outpatient PT/OT.
PCP: Suman Alexandre
Pharmacy: [facility].
D/C plan: home with most likely outpatient PT/OT. to transport at discharge.
CM will follow with discharge plan updates as needed.
--- NOTE | 2024-08-03 12:45 | PTOTSP ---
pt currently demonstrates ability to complete simple ADLs, functional transfers, ambulation with supervision to no assistance. pt demonstrates good cognition, no overt deficits noted. no acute OT needs identified, will sign off.
--- NOTE | 2024-08-03 13:11 | W.PN.HOSP.TC ---
Today's Communication/Plan
-
Assessment / Plan
Assessment / Plan
Gen-AAOx3, NAD
HEENT-NC, AT, anicteric, clear oral mm
Neck-supple
CV-reg, no M, +S1/S2
Lungs-clear B/L
Abd-soft, NT, ND
Musculoskeletal-no edema, no deformity
Skin-warm and dry
Neuro-grossly non-focal
Psych-calm, cooperative
Ms. Estrada is a 49-year-old female with a medical history of GERD and ADHD who presented with dizziness and left-sided paresthesias. Symptom onset was upon waking. However, when driving to work she developed left chest tingling sensation that
radiated down her left arm and was also present in her left leg. When she arrived at work, she called EMS who transported her to [facility]. Per EMS, she had some repetitive questioning and expressive aphasia, and reported mild left-sided
facial droop. Of note she recently was started on estradiol hormone replacement therapy this past July 27. She is a half a pack per day current smoker x 20 years. She denies alcohol use. Family history is significant for father with
multiple CVAs who ultimately of complications from strokes in his early 60s. MRI at the time of admission showed large left cerebellar infarct. She has been admitted for further evaluation and management.
Acute CVA:
-MRI shows left cerebellar infarct
-Continue aspirin and Plavix intensity statin
-Currently being monitored in the ICU
-Evaluated by PT/OT recommend home independent with outpatient PT if needed
-Supportive care with antiemetics Tylenol as needed for headaches
-Recommend discontinuing estradiol supplementation which she had been taking for control of perimenopausal symptoms
-Recommend she discontinue smoking
Anticipated Discharge: 24 - 48 hours
Subjective/Interval History
-
Date of Service: August 03, 2024
Ms. Estrada was seen and examined at bedside this morning. She was transferred to the ICU overnight per neurology request for close monitoring in the setting of large left cerebellar stroke. She feels about the same as she did yesterday with
ongoing mild headache.
Objective Data
-
Labs:
Laboratory Results
08/03/24
04:37
WBC 13.9 H
Hgb 13.3
Hct 38.8
Plt Count 295
PT 13.1
INR 0.94
APTT 28.1
Sodium 130 L
Potassium 4.4
Chloride 97 L
Carbon Dioxide 23
BUN 16
Creatinine 0.7
Glucose 94
Calcium 9.1
Vital Signs:
Vital Signs
Temp Pulse Resp BP Pulse Ox
98.5 F 74 21 129/89 95
08/03/24 11:17 08/03/24 13:00 08/03/24 13:00 08/03/24 13:00 08/03/24 13:00
I&O
08/02/24 08/03/24 08/04/24
06:59 06:59 06:59
Intake Total 960 / 960 600 / 600
Balance 960 / 960 600 / 600
Review of Systems
-
History Source: Patient
All other systems: Reviewed and negative
Neuro: Reports Headache
Physical Exam
-
General: No Apparent Distress
[2024-08-03 13:52] LABS: Erythrocyte Sed Rate 21 mm/hour (0-20)
[2024-08-03 14:26] LABS: Folate 12.1 ng/ml (2.76-20); Vitamin B12 832 pg/ml (239-931)
[2024-08-03] MEDS: PEPCID 20 MG PO (14:33)
[2024-08-03] MEDS: BENADRYL 25 MG IV (14:52)
[2024-08-03] MEDS: REGLAN 10 MG IV (14:52)
--- NOTE | 2024-08-03 15:52 | PTCARENOTE ---
Addendum entered by Celina Pineda RN 08/03/24 15:59:
pt. 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 CXR completed @ bedside. Call digna wooetn in reach.
Original Note:
pt. reported 6/10 h/a and int nausea, admin pnr IV Benadryl and IV Reglan- see MAR. Neuro checks remain unchanged. Dr. Boston aware of h/a. Call digna in reach.
[2024-08-03 16:01] LABS: HIV Combo Negative (Negative)
[2024-08-03] MEDS: LIPITOR 40 MG PO (17:31)
[2024-08-03] MEDS: LOVENOX 40 MG SC (17:32)
[2024-08-03] MEDS: AMBIEN 5 MG PO (21:35)
--- NOTE | 2024-08-03 22:24 | PTCARENOTE ---
Assumed care of pt. approx. 1900.
NIH 0, GCS 15, Pupils =/r 4mm brisk, full gaze, focally intact, 5/5 movement in all extrem, no sensation deficits, speech clear.
All care explained bedside to patient and , all questions answered.
[2024-08-04] VITALS (13 sets, daily range): BP systolic 104–140; BP diastolic 86–101; PULSE 87; BMI 23.9
--- NOTE | 2024-08-04 00:09 | PTCARENOTE ---
No change in patient assessment.
[2024-08-04] MEDS: BENADRYL 25 MG IV (04:06)
[2024-08-04 04:21] LABS: % Basophils 0.4 % (0-2); % Eosinophils 0.7 % (0-6); % Immature Granulocytes 0.4 % (0-0.5); % Lymphocytes 28.9 % (20.5-51.1); % Monocytes 9.6 % (1.7-9.3); Absolute Basophils 0.1 10^3/uL (0-0.2); Absolute Eosinophils 0.1 10^3/uL (0-0.7); Absolute Immature Granulocytes 0.1 10^3/uL (0-0.05); Absolute Lymphocytes 3.2 10^3/uL (1.2-3.4); Absolute Monocytes 1.1 10^3/uL (0.1-0.6); Absolute Neutrophils 6.7 10^3/uL (1.4-6.5); Hemoglobin 13.5 g/dL (12.0-16.0); Mean Corp Hgb Conc. 34.6 g/dL (33.0-37.0); Mean Corpuscular Hgb 34.1 pg (27.0-31.0); Mean Corpuscular Volume 98.5 fL (81.0-99.0); Mean Platelet Volume 10.3 fL (7.4-10.4); Nucleated Red Blood Cells % 0 %; Platelet Count 305 10^3/uL (130-400); Red Blood Cell Count 3.96 10^6/uL (4.20-5.40); Red Cell Dist. Width 11.9 % (11.5-14.5); White Blood Cell Count 11.2 10^3/uL (4.8-10.8)
[2024-08-04 05:05] LABS: Blood Urea Nitrogen 10 mg/dl (7-17); Carbon Dioxide 23 mmol/L (22-30); Chloride 102 mmol/L (98-107); Estimated Creatinine Clearance 71 ml/min; Glucose 91 mg/dl (70-99); Magnesium 2.2 mg/dl (1.6-2.3); Potassium 4.5 mmol/L (3.5-5.1); Sodium 135 mmol/L (135-145); eGFR > 60.00
--- NOTE | 2024-08-04 05:10 | PTCARENOTE ---
No change in pt. assessment.
[2024-08-04] MEDS: PEPCID 20 MG PO (07:49)
[2024-08-04] MEDS: PLAVIX 75 MG PO (07:49)
[2024-08-04] MEDS: ALDACTONE 50 MG PO (07:49)
[2024-08-04] MEDS: LOW STRENGTH ASPIRIN 81 MG PO (07:49)
--- NOTE | 2024-08-04 07:58 | PTCARENOTE ---
pt aaox3. states slight head ache does not want pain med at this time. nihss 0 neuro checks as documented. pt walks in room unassisted. oob in chair. rrom air breath sounds clear. pupils 3 reactive.
--- NOTE | 2024-08-04 08:20 | W.PN.INTV ---
Today's Communication / Plan
Recommendations
Continue neurochecks with frequency dictated by neurology
NIHSS per shift
Stat CT head if there is any change in neurochecks or new concerning symptoms
High intensity statin
DAPT with ASA + Plavix
Given the size of her cerebellar infarct with risk of edema/hydrocephalus, neurology wishes to continue ICU level of care.
Repeat CT head pending for this afternoon
Discharge planning: Hopefully patient can be discharged home tomorrow if cleared by neurology
Assessment
-
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
Acute/subacute left SCA/PICA infarct
Left vertebral artery occlusion
Leukocytosis
Conditions present prior to admission:
GERD.
Cigarette smoker.
ADHD.
Plan
Patient will closely be monitored in the medical intensive care unit-significant risk of edema/hydrocephalus
Supplement oxygen if needed keeping SpO2 >92%
Aspiration precautions
Nebulizers if needed-currently not bronchospastic
CXR shows no acute cardiopulmonary process
Neurology evaluation-correspondence reviewed
Neurochecks
Echocardiogram with bubble study done 08/03/2024 shows no evidence of shunting with normal LVEF at 67% with no regional WMA seen, also no significant valvular disease
DAPT for 21 days
High intensity statin
A1c: 5.3 on 08/02/2024
Eventual hematology consultation for hypercoagulable workup
Smoking cessation counseling provided
Nicotine patch if needed
Outpatient pulmonary follow-up including PFTs, ongoing smoking cessation counseling and evaluation for low-dose lung cancer screening CT
Given the size of her cerebellar infarct with risk of edema/hydrocephalus, neurology wishes to continue ICU level of care.
Total time spent today was 78 minutes for this encounter. Time includes reviewing laboratory test/imaging results, reviewing pertinent medical records, obtaining and reviewing medical history, performing an appropriate exam, ordering medications,
tests and procedures. Time also includes documentation of this encounter, coordinating patient care and communicating with other healthcare professionals. Total time does not include separately billed tests performed on this date of service.
Diagnostic data:
Chest x-ray 08/03/2024-pending
CT head 08/02/2024-normal
CT head and neck angiogram 08/02/2024-small caliber left vertebral artery is occluded just distal to the origin
Brain MRI 08/02/2024-large acute infarct left cerebellar hemisphere, small region left lateral medulla may be secondary to subacute ischemia
Subjective Dataa
Subjective Data
Date of Service:
Date of Service: August 04, 2024
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
Subjective:
Patient seen and evaluated today at bedside. She feels well, although has left thumb numbness with oefw-nnu-hfnphir that started this morning. No weakness or loss of sensation elsewhere. Currently on room air breathing comfortably with heart rate
77 and BP 136/86. Afebrile overnight. Saturating 95%. Denies abdominal pain, nausea, fevers or chills. Has some nasal stuffiness and thinks that this is causing her headache.
Review of Systems
General: Other (Negative unless mentioned above)
Objective Data
Data Reviewed
Vital Signs / I&O / Oxygen:
Vital Signs
Temp Pulse Resp BP Pulse Ox
98.2 F 81 16 136/86 94
08/04/24 07:32 08/04/24 07:49 08/04/24 07:49 08/04/24 07:49 08/04/24 06:00
Intake and Output
08/03/24 08/04/24 08/05/24
06:59 06:59 06:59
Intake Total 960 / 960 960 / 960
Balance 960 / 960 960 / 960
SaO2 94
Physical Exam
General: Respiratory Distress (negative), Comfortable, Chills (negative) and Sweats (negative)
HEENT: Normocephalic and Anicteric
Cardiovascular: S1-S2, Rub (negative) and Peripheral Edema (negative)
Respiratory: Clear, Wheeze (negative), Crackles (negative), Rhonchi (negative), Non-Labored Respirations and Stridor (negative)
GI: Soft, Non Distended, Non Tender and Normal Bowel Sounds
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
the face, able to protrude tongue with lateral movement intact, pupillary reflexes intact bilaterally; normal smile)
Skin: Warm, Dry, Cyanosis (negative) and Jaundice (negative)
Labs/Micro/Reports
Lab Data
08/04/24 04:01
08/04/24 04:01
[2024-08-04] MEDS: OCEAN, SALINE MIST 1 SPRAYS NASAL (10:39)
[2024-08-04] MEDS: TYLENOL 650 MG PO (10:39)
--- NOTE | 2024-08-04 12:48 | PTCARENOTE ---
pt complained of facial sinus pressure. md made aware saline spray ordered and tylenol given
--- NOTE | 2024-08-04 13:52 | W.PN.NEURO.1 ---
Today's Communication / Plan
-
.
Subjective/Objective
Subjective Data
Date of Service: August 04, 2024
Neurology Follow up Note
24-hour events. Ms. Estrada endorses new left hand paresthesias as well as nasal congestion and improvement of her headache since yesterday.
No reports of change in vision, strength.
Brain MRI wo ozzie(08/02/2024)-Large acute infarct of the left cerebellar hemisphere. Smaller region of signal alteration in the left lateral medulla may be secondary to subacute ischemia
TTE(08/03/2024) -interatrial septum is intact with no evidence of shunting by color flow Doppler or by agitated saline. No intracardiac mass or thrombus formation seen.
Labs: Hb A1c�5.3, LDL�127
CTA head/neck-no LVO, left vertebral artery occlusion.
PMH: ADHD, insomnia, premenopause, GERD
SH: , light smoker, no history of excessive alcohol use.
FH: father�stroke
All:NKDA
ROS: Positive for left-sided numbness, language dysfunction, vertigo, ataxia
General: Well developed. In no acute distress.
Cardio: Regular rate and rhythm. Extremities are without cyanosis or edema.
Neuro:
Mental Status: Alert, oriented to self, place. Good attention and comprehension. Follows simple requests consistently. No aphasia or hemineglect.
Cranial Nerves: Pupils are equally round and reactive to light. EOMs full. Visual sanchez full to confrontation. Face symmetric. Normal hearing AU. No dysarthria.
Motor: No pronator or arm drift. Full strength.
Sensory: Normal vibration at the toes
Coordination: No dysmetria on [id number]. Normal fine finger movements.
Gait: deferred
NIH -0
Assessment and Plan:
I. Acute acute/subacute left SCA/PICA infarct. Likely etiology-embolic versus artery to artery embolism. Hormone replacement therapy�increases the risk of stroke, especially in the first year of use.
II. Left vertebral artery occlusion.
III. Leukocytosis
-Continue ICU care given the size of the cerebellar infarct and the risk of edema/hydrocephalus given patient's age
-Aspiration precautions.
-TTE with bubble studies
-Continue DAPT for 21 days.
-Repeat CT head wo contrast given new sensory symptoms.
-Lipitor 40 mg QHS. LDL goal�<100.
-Hematology consult for hypercoagulable workup
-DVT prophylaxis.
I personally reviewed all radiology and labs along with past medical records pertinent to current medical problems. Total time spent in patient care is 60 minutes.
Thank you for allowing us to participate in the care of this patient. We will continue to follow. Please do not hesitate to contact us with any questions or concerns.
Objective Data
Vital Signs
Temp Pulse Resp BP Pulse Ox
36.9 C 68 18 104/92 95
08/04/24 12:15 08/04/24 11:00 08/04/24 11:00 08/04/24 10:00 08/04/24 09:00
Lab Results
08/04/24 04:01
08/04/24 04:01
PT 13.1 Sec (11.4-14.6) 08/03/24 04:37
INR 0.94 08/03/24 04:37
APTT 28.1 Sec (23.4-35.0) 08/03/24 04:37
Sodium 135 mmol/L (135-145) 08/04/24 04:01
Potassium 4.5 mmol/L (3.5-5.1) 08/04/24 04:01
BUN 10 mg/dl (7-17) 08/04/24 04:01
Glucose 91 mg/dl (70-99) 08/04/24 04:01
Calcium 9.0 mg/dl (8.4-10.2) 08/04/24 04:01
LDL Cholesterol, Calc Cancelled 08/02/24 10:33
Vitamin B12 832 pg/ml (527-931) 08/03/24 12:42
Ur Buprenorphine Negative (Negative) 08/02/24 15:58
Patient Allergies
No Known Allergies Allergy (Unverified 08/02/24 08:05)
Vital Signs and Labs
-
Vital Signs and Labs:
Vital Signs
Temp Pulse Resp BP Pulse Ox
36.9 C 68 18 104/92 95
08/04/24 12:15 08/04/24 11:00 08/04/24 11:00 08/04/24 10:00 08/04/24 09:00
Lab Results
08/04/24 04:01
08/04/24 04:01
PT 13.1 Sec (11.4-14.6) 08/03/24 04:37
INR 0.94 08/03/24 04:37
APTT 28.1 Sec (23.4-35.0) 08/03/24 04:37
Sodium 135 mmol/L (135-145) 08/04/24 04:01
Potassium 4.5 mmol/L (3.5-5.1) 08/04/24 04:01
BUN 10 mg/dl (7-17) 08/04/24 04:01
Glucose 91 mg/dl (70-99) 08/04/24 04:01
Calcium 9.0 mg/dl (8.4-10.2) 08/04/24 04:01
LDL Cholesterol, Calc Cancelled 08/02/24 10:33
Vitamin B12 832 pg/ml (708-931) 08/03/24 12:42
Ur Buprenorphine Negative (Negative) 08/02/24 15:58
Medications
-
Medications:
Generic Name Dose Route Start Last Admin
Trade Name Freq PRN Reason Stop Dose Admin
Acetaminophen 650 mg 08/02/24 12:11 08/04/24 10:39
Acetaminophen 325 Mg Tablet PO 08/30/24 12:10 650 mg
Q4HPRN PRN Administration
mild pain/MOSES/temp> 100.4F
Aspirin 81 mg 08/03/24 08:00 08/04/24 07:49
Aspirin 81 Mg Chewable Tablet PO 08/31/24 07:59 81 mg
DAILY ELADIO Administration
Atorvastatin Calcium 40 mg 08/02/24 18:00 08/03/24 17:31
Atorvastatin (Lipitor) 40 Mg Tablet PO 08/30/24 17:59 40 mg
QPM ELADIO Administration
Bisacodyl 10 mg 08/02/24 12:11
Bisacodyl 10 Mg Rectal Suppository RECTAL 08/30/24 12:10
[id number] PRN
constipation
Clopidogrel Bisulfate 75 mg 08/03/24 08:00 08/04/24 07:49
Clopidogrel 75 Mg Tablet PO 08/31/24 07:59 75 mg
DAILY ELADIO Administration
Diphenhydramine HCl 25 mg 08/03/24 09:50 08/04/24 04:06
Diphenhydramine 50 Mg/Ml 1 Ml Vial IV 08/31/24 09:49 25 mg
Q6HPRN PRN Administration
headache
Enoxaparin Sodium 40 mg 08/02/24 18:00 08/03/24 17:32
Enoxaparin Sodium 40 Mg/0.4 Ml Syringe SC 08/30/24 17:59 40 mg
QPM ELADIO Administration
Famotidine 20 mg 08/03/24 15:00 08/04/24 07:49
Famotidine 20 Mg Tablet PO 08/31/24 14:59 20 mg
DAILY ELADIO Administration
Metoclopramide HCl 10 mg 08/03/24 09:49 08/03/24 14:52
Metoclopramide 10 Mg/2 Ml Vial IV 08/31/24 09:48 10 mg
Q6HPRN PRN Administration
nausea
Nicotine 7 mg 08/02/24 16:00 08/04/24 07:49
Nicotine 7 Mg Patch TRANSDERM 08/30/24 15:59 Not Given
DAILY ELADIO
Non-Formulary Medication 40 mg 08/03/24 08:00
Lisdexamfetamine [Vyvanse] PO 08/31/24 07:59
DAILY ELADIO
Patch Removal 0 patch 08/02/24 22:00 08/03/24 22:27
Remove Nicotine Patch REMOVE 08/30/24 21:59 Not Given
HS ELADIO
Polyethylene Glycol 17 grams 08/02/24 12:11
Polyethylene Glycol Powder 17 Grams Packet PO 08/30/24 12:10
DAILYPRN PRN
constipation
Senna/Docusate Sodium 1 tablet 08/02/24 12:11
Docusate W/Senna (Willa-Colace) Tablet PO 08/30/24 12:10
BIDPRN PRN
constipation
Sodium Chloride 0 flush 08/03/24 01:00
Sodium Chloride 0.9% (Flush) Syringe IV 08/31/24 00:59
PER PROTOCOL ELADIO
Sodium Chloride 0 sprays 08/04/24 10:11 08/04/24 10:39
Sodium Chloride 0.65% Nasal [place] 45 Ml Bottle NASAL 09/01/24 10:10 1 sprays
QIDPRN PRN Administration
congestion
Spironolactone 50 mg 08/03/24 08:00 08/04/24 07:49
Spironolactone 50 Mg Tablet PO 08/31/24 07:59 50 mg
DAILY ELADIO Administration
Zolpidem Tartrate 5 mg 08/03/24 17:33 08/03/24 21:35
Zolpidem Tartrate 5 Mg Tablet PO 08/31/24 17:32 5 mg
HSPRN PRN Administration
insomnia
Home Medications
-
Home Medications
diphenhydramine 25 mg-acetaminophen 500 mg tablet (Acetaminophen PM) 1 tab PO HSPRN PRN sleep 08/02/24
esomeprazole magnesium 40 mg capsule,delayed release (Nexium) 40 mg PO DAILY Gastrointestinal Issue 08/02/24
estradiol 1 mg tablet 1 mg PO DAILY Hormonal Agent 08/02/24
eszopiclone 3 mg tablet (Lunesta) 3 mg PO HS Sleep 08/02/24
famotidine 40 mg tablet (Pepcid) 40 mg PO HS Gastrointestinal Issue 08/02/24
lisdexamfetamine 40 mg capsule (Vyvanse) 40 mg PO DAILY Neurological Condition 08/02/24
spironolactone 50 mg tablet 50 mg PO DAILY Blood Pressure 08/02/24
--- NOTE | 2024-08-04 16:00 | PTCARENOTE ---
no change in pt assessment
--- NOTE | 2024-08-04 16:32 | W.PN.HOSP.TC ---
Today's Communication/Plan
-
Assessment / Plan
Assessment / Plan
Gen-AAOx3, NAD
HEENT-NC, AT, anicteric, clear oral mm bilateral frontal sinus TTP
Neck-supple
CV-reg, no M, +S1/S2
Lungs-clear B/L
Abd-soft, NT, ND
Musculoskeletal-no edema, no deformity
Skin-warm and dry
Neuro-grossly non-focal
Psych-calm, cooperative
Ms. Estrada is a 49-year-old female with a medical history of GERD and ADHD who presented with dizziness and left-sided paresthesias. Symptom onset was upon waking. However, when driving to work she developed left chest tingling sensation that
radiated down her left arm and was also present in her left leg. When she arrived at work, she called EMS who transported her to [facility]. Per EMS, she had some repetitive questioning and expressive aphasia, and reported mild left-sided
facial droop. Of note she recently was started on estradiol hormone replacement therapy this past July 27. She is a half a pack per day current smoker x 20 years. She denies alcohol use. Family history is significant for father with
multiple CVAs who ultimately of complications from strokes in his early 60s. MRI at the time of admission showed large left cerebellar infarct. She has been admitted for further evaluation and management.
Acute CVA:
-MRI shows left cerebellar infarct
-Continue aspirin and Plavix intensity statin
-Currently being monitored in the ICU
-Evaluated by PT/OT recommend home independent with outpatient PT if needed
-Supportive care with antiemetics, Tylenol as needed for headaches, added Mucinex and nasal spray for frontal sinus pressure
-Discontinue estradiol supplementation which she had been taking for control of perimenopausal symptoms
-Recommend she discontinue smoking
Anticipated Discharge: 24 - 48 hours
Subjective/Interval History
-
Date of Service: August 04, 2024
Ms. Estrada was seen and examined at bedside this morning. She reports having slept well last night although had strange dreams after taking Ambien to help her sleep. She usually takes Lunesta at home. Still experiencing persistent headache.
Objective Data
-
Labs:
Laboratory Results
08/04/24
04:01
Sodium 135
Potassium 4.5
Chloride 102
Carbon Dioxide 23
BUN 10
Creatinine 0.8
Glucose 91
Calcium 9.0
Vital Signs:
Vital Signs
Temp Pulse Resp BP Pulse Ox
98.0 F 90 16 132/99 95
08/04/24 15:30 08/04/24 16:00 08/04/24 15:12 08/04/24 15:12 08/04/24 09:00
I&O
08/03/24 08/04/24 08/05/24
06:59 06:59 06:59
Intake Total 960 / 960 960 / 960
Balance 960 / 960 960 / 960
Review of Systems
-
History Source: Patient
All other systems: Reviewed and negative
Neuro: Reports Headache and Numbness (Left hand)
Physical Exam
-
General: No Apparent Distress
[2024-08-04] MEDS: LOVENOX 40 MG SC (18:29)
[2024-08-04] MEDS: LIPITOR 40 MG PO (18:29)
--- NOTE | 2024-08-04 20:03 | PTCARENOTE ---
Assumed care of pt. approx 1900.
NIH 0, GCS 15, focally intact, see neuro flowsheet for further details.
Ambulated around unit, pt. states headache is improving pain level about 1-2.
Mild paresthesia in thumb of Left hand still present.
[2024-08-04] MEDS: MUCINEX 1200 MG PO (20:20)
[2024-08-04] MEDS: AMBIEN 5 MG PO (21:49)
[2024-08-05] VITALS (11 sets, daily range): BP systolic 115–140; BP diastolic 72–100; BMI 23.9
[2024-08-05] MEDS: BENADRYL 25 MG IV ×2 (02:09→15:17)
--- NOTE | 2024-08-05 02:14 | PTCARENOTE ---
No change in pt. assessment.
[2024-08-05 04:39] LABS: % Basophils 0.6 % (0-2); % Eosinophils 1.4 % (0-6); % Immature Granulocytes 0.7 % (0-0.5); % Lymphocytes 38.4 % (20.5-51.1); % Monocytes 9.8 % (1.7-9.3); % Neutrophils 49.1 % (42.2-75.2); Absolute Basophils 0.1 10^3/uL (0-0.2); Absolute Eosinophils 0.1 10^3/uL (0-0.7); Absolute Immature Granulocytes 0.1 10^3/uL (0-0.05); Absolute Lymphocytes 3.8 10^3/uL (1.2-3.4); Absolute Neutrophils 4.8 10^3/uL (1.4-6.5); Hematocrit 37.9 % (37.0-47.0); Hemoglobin 13.7 g/dL (12.0-16.0); Mean Corp Hgb Conc. 36.1 g/dL (33.0-37.0); Mean Corpuscular Hgb 35.5 pg (27.0-31.0); Mean Corpuscular Volume 98.2 fL (81.0-99.0); Mean Platelet Volume 10.5 fL (7.4-10.4); Nucleated Red Blood Cells % 0 %; Platelet Count 294 10^3/uL (130-400); Red Blood Cell Count 3.86 10^6/uL (4.20-5.40); Red Cell Dist. Width 11.8 % (11.5-14.5); White Blood Cell Count 9.9 10^3/uL (4.8-10.8)
[2024-08-05 06:29] LABS: Blood Urea Nitrogen 11 mg/dl (7-17); Calcium 9.2 mg/dl (8.4-10.2); Carbon Dioxide 21 mmol/L (22-30); Chloride 103 mmol/L (98-107); Estimated Creatinine Clearance 81 ml/min; Glucose 87 mg/dl (70-99); Magnesium 2.2 mg/dl (1.6-2.3); Potassium 4.5 mmol/L (3.5-5.1); Sodium 134 mmol/L (135-145); eGFR > 60.00
[2024-08-05] MEDS: PEPCID 20 MG PO (06:37)
[2024-08-05] MEDS: LOW STRENGTH ASPIRIN 81 MG PO (08:05)
[2024-08-05] MEDS: ALDACTONE 50 MG PO (08:05)
[2024-08-05] MEDS: PLAVIX 75 MG PO (08:05)
[2024-08-05] MEDS: MUCINEX 1200 MG PO ×2 (08:05→19:31)
--- NOTE | 2024-08-05 08:17 | PTCARENOTE ---
pt aaox3. nihss 0 pt states the tingling in her left thumb improving. wants to go home today.states she is not sleeping well. says her headache is a little better does not want tylenol at this time. walking in room and hallways. nsr seen on
monitor.
--- NOTE | 2024-08-05 08:28 | W.PN.INTV ---
Today's Communication / Plan
Recommendations
Continue neurochecks with frequency dictated by neurology
NIHSS per shift
Stat CT head if there is any change in neurochecks or new concerning symptoms
High intensity statin
DAPT with ASA + Plavix
Given the size of her left cerebellar infarct with risk of edema/hydrocephalus, defer disposition to neurology
CT head repeated on 08/04/2024 showing stable 4.5 cm subacute nonhemorrhagic multifocal left cerebellar infarct
Give Ativan and repeat MRI pending now that patient has anxiety with sudden nausea and just 'does not feel right' as of this morning
Assessment
-
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
Acute/subacute left SCA/PICA infarct � MRI brain from 08/02/2024 showed large acute infarct of the left cerebellar hemisphere
Left vertebral artery occlusion
Leukocytosis � resolved as of 08/05/2024
Conditions present prior to admission:
GERD.
Cigarette smoker.
ADHD.
Plan
Patient will closely be monitored in the medical intensive care unit-significant risk of edema/hydrocephalus until deemed stable for downgrade per neurology
Supplement oxygen if needed keeping SpO2 >92%
Aspiration precautions
Nebulizers if needed-currently not bronchospastic
CXR shows no acute cardiopulmonary process
Neurology evaluation-correspondence reviewed
Neurochecks
Echocardiogram with bubble study done 08/03/2024 shows no evidence of shunting with normal LVEF at 67% with no regional WMA seen, also no significant valvular disease
DAPT for 21 days
High intensity statin
A1c: 5.3 on 08/02/2024
Eventual hematology consultation for hypercoagulable workup
Smoking cessation counseling provided
Nicotine patch if needed
Outpatient pulmonary follow-up including PFTs, ongoing smoking cessation counseling and evaluation for low-dose lung cancer screening CT
Given the size of her cerebellar infarct with risk of edema/hydrocephalus, neurology wishes to continue ICU level of care.
Total time spent today was 52 minutes for this encounter. Time includes reviewing laboratory test/imaging results, reviewing pertinent medical records, obtaining and reviewing medical history, performing an appropriate exam, ordering medications,
tests and procedures. Time also includes documentation of this encounter, coordinating patient care and communicating with other healthcare professionals. Total time does not include separately billed tests performed on this date of service.
Diagnostic data:
Chest x-ray 08/03/2024-final impression pending - appears normal with no acute cardiopulmonary process to my read
CT head 08/02/2024-normal
CT head and neck angiogram 08/02/2024-small caliber left vertebral artery is occluded just distal to the origin
Brain MRI 08/02/2024-large acute infarct left cerebellar hemisphere, small region left lateral medulla may be secondary to subacute ischemia
Subjective Dataa
Subjective Data
Date of Service:
Date of Service: August 05, 2024
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
Subjective:
Seen this morning. She feels well. Eager to go home. Currently on room air, saturating 100%, heart rate 81. No headache although she did have 1 overnight. No weakness and she feels much better overall. Shortly after I left the room she
developed dizziness, nausea, and anxiety. We reached out to neurology (RN texted her on TT) and MRI will be reordered and recommended to give meclizine or Ativan - I will give Ativan.
Review of Systems
General: Other (Negative unless mentioned above)
Objective Data
Data Reviewed
Vital Signs / I&O / Oxygen:
Vital Signs
Temp Pulse Resp BP Pulse Ox
99.0 F 76 16 117/83 100
08/05/24 08:15 08/05/24 08:05 08/04/24 15:12 08/05/24 08:05 08/05/24 04:26
Intake and Output
08/04/24 08/05/24 08/06/24
06:59 06:59 06:59
Intake Total 960 / 960 200 / 200
Balance 960 / 960 200 / 200
SaO2 100
Nasal Cannula flow liters per 100
minute
Physical Exam
General: Respiratory Distress (negative), Comfortable, Chills (negative) and Sweats (negative)
HEENT: Normocephalic and Anicteric
Cardiovascular: S1-S2, Rub (negative) and Peripheral Edema (negative)
Respiratory: Clear, Wheeze (negative), Crackles (negative), Rhonchi (negative), Non-Labored Respirations and Stridor (negative)
GI: Soft, Non Distended, Non Tender and Normal Bowel Sounds
Neurology: AO x 3, No Motor Deficits (Plantar/-dorsiflexion bilaterally: 5/5; fly tier strength bilaterally: 5/5), Tremors (negative) and Other (Normal shoulder shrug, normal H test, able to keep eyes closed against resistance, normal sensation along
the face, able to protrude tongue with lateral movement intact, pupillary reflexes intact bilaterally; normal smile)
Skin: Warm, Dry, Cyanosis (negative) and Jaundice (negative)
Labs/Micro/Reports
Lab Data
08/05/24 04:23
08/05/24 05:37
[2024-08-05 10:12] LABS: Glucose - Point of Care 78 mg/dl (70-99)
[2024-08-05] MEDS: REGLAN 10 MG IV ×2 (10:14→19:05)
[2024-08-05] MEDS: NSS (PRESERVATIVE FREE) 0.125 ML IV (10:24)
[2024-08-05] MEDS: ATIVAN 0.25 MG IV (10:24)
--- NOTE | 2024-08-05 10:30 | PTCARENOTE ---
pt rang call sawyer states she feels dizzy, hot sweaty, nauseous and has pins and needles in her entire left hand now. pt was sitting on side of bed. had her lay down. gave reglan for nausea notified chief guard and neurology. ativan iv ordered.
pt now resting in bed. symptoms slightly improved but numbness in left hand remains.
--- NOTE | 2024-08-05 12:21 | PTCARENOTE ---
pt taken to mri and returned. pt able to stand and piviot with one person assist to mri table. pt states still dizzy
--- NOTE | 2024-08-05 12:38 | W.PN.NEURO.1 ---
Today's Communication / Plan
-
.
Subjective/Objective
Subjective Data
Date of Service: August 05, 2024
Neurology Follow up Note
Ms. Estrada endorses transient vertigo with associated nausea and diaphoresis and return of left hand numbness (all digits are involved) upon getting up to work with physical therapy. No reports of headache, change in vision, strength.
Repeat CT head from yesterday showed evolution of known left cerebellar infarct
PMH: ADHD, insomnia, premenopause, GERD
SH: , light smoker, no history of excessive alcohol use.
FH: father�stroke
All:NKDA
ROS: Positive for left-sided numbness, language dysfunction, vertigo, ataxia
General: Well developed. In no acute distress.
Cardio: Regular rate and rhythm. Extremities are without cyanosis or edema.
Neuro:
Mental Status: Alert, oriented to self, place. Good attention and comprehension. Follows simple requests consistently. No aphasia or hemineglect.
Cranial Nerves: Pupils are equally round and reactive to light. EOMs full. Visual sanchez full to confrontation. Face symmetric. Normal hearing AU. No dysarthria.
Motor: No pronator or arm drift. Full strength.
Sensory: Normal vibration at the toes
Coordination: Dysmetria on FTN on the L. No dysmetria on HTS
Gait: deferred
NIH -1
Assessment and Plan:
I. Acute acute/subacute left SCA/PICA infarct, clinically worse.
II. Left vertebral artery occlusion.
III. Nicotine addiction.
-Continue telemetry monitoring
-Continue DAPT for 21 days.
-Brain MRI without ozzie given ongoing sensory symptoms
-Lipitor 40 mg QHS. LDL goal<100.
-Follow-up thrombophilia blood work
-Meclizine 25 mg every 8 hours as needed
-No amphetamines, HRT, known to increase stroke risk
-Nicotine patch
-DVT prophylaxis.
I personally reviewed all radiology and labs along with past medical records pertinent to current medical problems. Total time spent in patient care is 45 minutes.
Thank you for allowing us to participate in the care of this patient. We will continue to follow. Please do not hesitate to contact us with any questions or concerns.
Objective Data
Vital Signs
Temp Pulse Resp BP Pulse Ox
36.6 C 76 16 117/83 100
08/05/24 12:11 08/05/24 08:05 08/04/24 15:12 08/05/24 08:05 08/05/24 04:26
Lab Results
08/05/24 04:23
08/05/24 05:37
PT 13.1 Sec (11.4-14.6) 08/03/24 04:37
INR 0.94 08/03/24 04:37
APTT 28.1 Sec (23.4-35.0) 08/03/24 04:37
Sodium 134 mmol/L (135-145) L 08/05/24 05:37
Potassium 4.5 mmol/L (3.5-5.1) 08/05/24 05:37
BUN 11 mg/dl (7-17) 08/05/24 05:37
Glucose 87 mg/dl (70-99) 08/05/24 05:37
Calcium 9.2 mg/dl (8.4-10.2) 08/05/24 05:37
LDL Cholesterol, Calc Cancelled 08/02/24 10:33
Vitamin B12 832 pg/ml (239-931) 08/03/24 12:42
Ur Buprenorphine Negative (Negative) 08/02/24 15:58
Patient Allergies
No Known Allergies Allergy (Unverified 08/02/24 08:05)
Vital Signs and Labs
-
Vital Signs and Labs:
Vital Signs
Temp Pulse Resp BP Pulse Ox
36.6 C 76 16 117/83 100
08/05/24 12:11 08/05/24 08:05 08/04/24 15:12 08/05/24 08:05 08/05/24 04:26
Lab Results
08/05/24 04:23
08/05/24 05:37
PT 13.1 Sec (11.4-14.6) 08/03/24 04:37
INR 0.94 08/03/24 04:37
APTT 28.1 Sec (23.4-35.0) 08/03/24 04:37
Sodium 134 mmol/L (135-145) L 08/05/24 05:37
Potassium 4.5 mmol/L (3.5-5.1) 08/05/24 05:37
BUN 11 mg/dl (7-17) 08/05/24 05:37
Glucose 87 mg/dl (70-99) 08/05/24 05:37
Calcium 9.2 mg/dl (8.4-10.2) 08/05/24 05:37
LDL Cholesterol, Calc Cancelled 08/02/24 10:33
Vitamin B12 832 pg/ml (239-931) 08/03/24 12:42
Ur Buprenorphine Negative (Negative) 08/02/24 15:58
Medications
-
Medications:
Generic Name Dose Route Start Last Admin
Trade Name Freq PRN Reason Stop Dose Admin
Acetaminophen 650 mg 08/02/24 12:11 08/04/24 10:39
Acetaminophen 325 Mg Tablet PO 08/30/24 12:10 650 mg
Q4HPRN PRN Administration
mild pain/MOSES/temp> 100.4F
Aspirin 81 mg 08/03/24 08:00 08/05/24 08:05
Aspirin 81 Mg Chewable Tablet PO 08/31/24 07:59 81 mg
DAILY ELADIO Administration
Atorvastatin Calcium 40 mg 08/02/24 18:00 08/04/24 18:29
Atorvastatin (Lipitor) 40 Mg Tablet PO 08/30/24 17:59 40 mg
QPM ELADIO Administration
Bisacodyl 10 mg 08/02/24 12:11
Bisacodyl 10 Mg Rectal Suppository RECTAL 08/30/24 12:10
[id number] PRN
constipation
Clopidogrel Bisulfate 75 mg 08/03/24 08:00 08/05/24 08:05
Clopidogrel 75 Mg Tablet PO 08/31/24 07:59 75 mg
DAILY ELADIO Administration
Diphenhydramine HCl 25 mg 08/03/24 09:50 08/05/24 02:09
Diphenhydramine 50 Mg/Ml 1 Ml Vial IV 08/31/24 09:49 25 mg
Q6HPRN PRN Administration
headache
Enoxaparin Sodium 40 mg 08/02/24 18:00 08/04/24 18:29
Enoxaparin Sodium 40 Mg/0.4 Ml Syringe SC 08/30/24 17:59 40 mg
QPM ELADIO Administration
Famotidine 20 mg 08/03/24 15:00 08/05/24 06:37
Famotidine 20 Mg Tablet PO 08/31/24 14:59 20 mg
DAILY ELADIO Administration
Guaifenesin 1,200 mg 08/04/24 20:00 08/05/24 08:05
Guaifenesin 600 Mg Extended Release Tablet PO 09/01/24 19:59 1,200 mg
Q12 ELADIO Administration
Lorazepam 1 mg 08/05/24 11:17
Lorazepam 2 Mg/Ml Vial IV 09/02/24 11:16
ONCE PRN
PRIOR TO MRI
Metoclopramide HCl 10 mg 08/03/24 09:49 08/05/24 10:14
Metoclopramide 10 Mg/2 Ml Vial IV 08/31/24 09:48 10 mg
Q6HPRN PRN Administration
nausea
Nicotine 7 mg 08/02/24 16:00 08/05/24 08:11
Nicotine 7 Mg Patch TRANSDERM 08/30/24 15:59 Not Given
DAILY ELADIO
Patch Removal 0 patch 08/02/24 22:00 08/04/24 21:46
Remove Nicotine Patch REMOVE 08/30/24 21:59 Not Given
HS ELADIO
Polyethylene Glycol 17 grams 08/02/24 12:11
Polyethylene Glycol Powder 17 Grams Packet PO 08/30/24 12:10
DAILYPRN PRN
constipation
Senna/Docusate Sodium 1 tablet 08/02/24 12:11
Docusate W/Senna (Willa-Colace) Tablet PO 08/30/24 12:10
BIDPRN PRN
constipation
Sodium Chloride 0 flush 08/03/24 01:00
Sodium Chloride 0.9% (Flush) Syringe IV 08/31/24 00:59
PER PROTOCOL ELADIO
Sodium Chloride 0 sprays 08/04/24 10:11 08/04/24 10:39
Sodium Chloride 0.65% Nasal [place] 45 Ml Bottle NASAL 09/01/24 10:10 1 sprays
QIDPRN PRN Administration
congestion
Sodium Chloride 0.5 ml 08/05/24 11:24
Nss (Pf) 10 Ml Vial For Ativan 1 Mg Dose IV 09/02/24 11:23
ONCE PRN
LORAZEPAM DILUTION
Spironolactone 50 mg 08/03/24 08:00 08/05/24 08:05
Spironolactone 50 Mg Tablet PO 08/31/24 07:59 50 mg
DAILY ELADIO Administration
Zolpidem Tartrate 5 mg 08/03/24 17:33 08/04/24 21:49
Zolpidem Tartrate 5 Mg Tablet PO 08/31/24 17:32 5 mg
HSPRN PRN Administration
insomnia
Home Medications
-
Home Medications
diphenhydramine 25 mg-acetaminophen 500 mg tablet (Acetaminophen PM) 1 tab PO HSPRN PRN sleep 08/02/24
esomeprazole magnesium 40 mg capsule,delayed release (Nexium) 40 mg PO DAILY Gastrointestinal Issue 08/02/24
estradiol 1 mg tablet 1 mg PO DAILY Hormonal Agent 08/02/24
eszopiclone 3 mg tablet (Lunesta) 3 mg PO HS Sleep 08/02/24
famotidine 40 mg tablet (Pepcid) 40 mg PO HS Gastrointestinal Issue 08/02/24
lisdexamfetamine 40 mg capsule (Vyvanse) 40 mg PO DAILY Neurological Condition 08/02/24
spironolactone 50 mg tablet 50 mg PO DAILY Blood Pressure 08/02/24
--- NOTE | 2024-08-05 13:55 | W.PN.HOSP.TC ---
Today's Communication/Plan
-
Initial CVA now appears to have progressed on repeat MRI
Follow-up neurology recommendations
Hematology consulted for thrombophilia workup
Assessment / Plan
Assessment / Plan
Gen-AAOx3, NAD
HEENT-NC, AT, anicteric, clear oral mm bilateral frontal sinus TTP
Neck-supple
CV-reg, no M, +S1/S2
Lungs-clear B/L
Abd-soft, NT, ND
Musculoskeletal-no edema, no deformity
Skin-warm and dry
Neuro-left arm paresthesia, recurrent dizziness
Psych-calm, cooperative
Ms. Estrada is a 49-year-old female with a medical history of GERD and ADHD who presented with dizziness and left-sided paresthesias. Symptom onset was upon waking. However, when driving to work she developed left chest tingling sensation that
radiated down her left arm and was also present in her left leg. When she arrived at work, she called EMS who transported her to [facility]. Per EMS, she had some repetitive questioning and expressive aphasia, and reported mild left-sided
facial droop. Of note she recently was started on estradiol hormone replacement therapy this past July 27. She is a half a pack per day current smoker x 20 years. She denies alcohol use. Family history is significant for father with
multiple CVAs who ultimately of complications from strokes in his early 60s. MRI at the time of admission showed large left cerebellar infarct. She has been admitted for further evaluation and management.
Acute CVA:
-Initial MRI shows left cerebellar infarct, angiography shows left vertebral artery occlusion
-Acute recurrence of dizziness and left arm paresthesias this morning 08/05, repeat MRI was obtained and showed progression of prior infarct
-Continue aspirin and Plavix intensity statin
-Currently being monitored in the ICU
-Consult to hematology for thrombophilia workup
-Will follow-up further evaluation by PT/OT considering progression of CVA
-Supportive care with antiemetics, Tylenol as needed for headaches, added Mucinex and nasal spray for frontal sinus pressure
-Discontinue estradiol supplementation which she had been taking for control of perimenopausal symptoms
-Recommend she discontinue smoking
Anticipated Discharge: > 48 hours
Subjective/Interval History
-
Date of Service: August 05, 2024
Ms. Estrada was seen and examined at bedside this morning. She had an episode of acute onset dizziness this morning with recurrence of her left arm paresthesias. Repeat MRI is being obtained.
Objective Data
-
Labs:
Laboratory Results
08/05/24 08/05/24
04:23 05:37
WBC 9.9
Hgb 13.7
Hct 37.9
Plt Count 294
Sodium Cancelled 134 L
Potassium Cancelled 4.5
Chloride Cancelled 103
Carbon Dioxide Cancelled 21 L
BUN Cancelled 11
Creatinine Cancelled 0.7
Glucose Cancelled 87
Calcium Cancelled 9.2
Vital Signs:
Vital Signs
Temp Pulse Resp BP Pulse Ox
97.8 F 70 16 131/77 100
08/05/24 12:11 08/05/24 13:00 08/04/24 15:12 08/05/24 09:58 08/05/24 04:26
I&O
08/04/24 08/05/24 08/06/24
06:59 06:59 06:59
Intake Total 960 / 960 200 / 200
Balance 960 / 960 200 / 200
Review of Systems
-
History Source: Patient
All other systems: Reviewed and negative
Neuro: Reports Dizzy and Numbness (Left arm)
Physical Exam
-
General: No Apparent Distress
[2024-08-05] MEDS: ANTIVERT 12.5 MG PO ×2 (15:17→21:08)
[2024-08-05] MEDS: TYLENOL 650 MG PO ×2 (15:17→19:31)
[2024-08-05] MEDS: LIPITOR 40 MG PO (17:52)
[2024-08-05] MEDS: LOVENOX 40 MG SC (17:52)
--- NOTE | 2024-08-05 19:00 | PTCARENOTE ---
Rec'd pt resting in bed, DANNY at 3mm, oriented w 3, cooperative, + headache- mild,NIH- 1, c/o L hand/fingers w/ tingling sensation, pt aware to call if she needs to get oob due to intermittent dizziness, SR, + pulses, skin warm/dry, RA, lungs clear,
sat 96, + bowel sounds, poor appetite, c/o nausea, vomited sm amt after turning in bed- K ALESIA Rubin aware of n/v & slight headache ;reglan 10mg iv given as ordered, tylenol 650mg po given at 1930 for headache, voids w/o difficulty
--- NOTE | 2024-08-05 21:00 | PTCARENOTE ---
assisted oob to commode- slight dizziness,when back inbed, vomited sm krystat, Froy Rubin np aware, antivert given
[2024-08-05] MEDS: AMBIEN 5 MG PO (21:56)
--- NOTE | 2024-08-05 22:00 | PTCARENOTE ---
ambien 5mg po given as requested
--- NOTE | 2024-08-05 23:00 | PTCARENOTE ---
Froy Rubin NP aware of bp- to cont to monitor nd norify if increases
--- NOTE | 2024-08-05 23:55 | PTCARENOTE ---
sys reviewed, decr dizziness, headache #1- requests no pain med, dozing on & off
[2024-08-06] VITALS (12 sets, daily range): BP systolic 121–141; BP diastolic 84–97; PULSE 90; BMI 23.1
[2024-08-06] MEDS: REGLAN 10 MG IV ×2 (04:33→12:10)
[2024-08-06] MEDS: BENADRYL 25 MG IV ×3 (04:37→21:59)
--- NOTE | 2024-08-06 04:40 | PTCARENOTE ---
reglan 10mg IV given for nausea, scant amt vomiting, benadryl 25mg iv given for mild headache
[2024-08-06 04:41] LABS: APTT 28.2 Sec (23.4-35.0); INR 0.95
[2024-08-06 04:52] LABS: Hematocrit 40.2 % (37.0-47.0); Hemoglobin 14.2 g/dL (12.0-16.0); Mean Corp Hgb Conc. 35.3 g/dL (33.0-37.0); Mean Corpuscular Hgb 34.3 pg (27.0-31.0); Mean Corpuscular Volume 97.1 fL (81.0-99.0); Mean Platelet Volume 10.5 fL (7.4-10.4); Platelet Count 318 10^3/uL (130-400); Red Blood Cell Count 4.14 10^6/uL (4.20-5.40); Red Cell Dist. Width 11.7 % (11.5-14.5); White Blood Cell Count 11.6 10^3/uL (4.8-10.8)
[2024-08-06 05:21] LABS: Blood Urea Nitrogen 17 mg/dl (7-17); Calcium 9.6 mg/dl (8.4-10.2); Carbon Dioxide 20 mmol/L (22-30); Chloride 102 mmol/L (98-107); Estimated Creatinine Clearance 81 ml/min; Glucose 96 mg/dl (70-99); Potassium 4.4 mmol/L (3.5-5.1); Sodium 135 mmol/L (135-145); eGFR > 60.00
--- NOTE | 2024-08-06 06:04 | PTCARENOTE ---
headache & nausea improved
--- NOTE | 2024-08-06 07:07 | W.PN.HOSP.TC ---
Today's Communication/Plan
-
c/w PT/OT today
transfer out of ICU if ok with neurology
Assessment / Plan
Assessment / Plan
Gen-AAOx3, NAD
HEENT-NC, AT, anicteric, clear oral mm bilateral frontal sinus TTP
Neck-supple
CV-reg, no M, +S1/S2
Lungs-clear B/L
Abd-soft, NT, ND
Musculoskeletal-no edema, no deformity
Skin-warm and dry
Neuro-left arm paresthesia, recurrent dizziness
Psych-calm, cooperative
Ms. Estrada is a 49-year-old female with a medical history of GERD and ADHD who presented with dizziness and left-sided paresthesias. Symptom onset was upon waking. However, when driving to work she developed left chest tingling sensation that
radiated down her left arm and was also present in her left leg. When she arrived at work, she called EMS who transported her to [facility]. Per EMS, she had some repetitive questioning and expressive aphasia, and reported mild left-sided
facial droop. Of note she recently was started on estradiol hormone replacement therapy this past July 27. She is a half a pack per day current smoker x 20 years. She denies alcohol use. Family history is significant for father with
multiple CVAs who ultimately of complications from strokes in his early 60s. MRI at the time of admission showed large left cerebellar infarct. She has been admitted for further evaluation and management.
Acute CV/ Acute acute/subacute left SCA/PICA infarct
Left vertebral artery occlusion
-Initial MRI shows left cerebellar infarct, angiography shows left vertebral artery occlusion
-Acute recurrence of dizziness and left arm paresthesias this morning 08/05, repeat MRI was obtained and showed progression of prior infarct
She feels dizzy, no hemodynamic instability
-Continue aspirin and Plavix intensity statin
-Currently being monitored in the ICU
-Consult to hematology for thrombophilia workup
-Will follow-up further evaluation by PT/OT considering progression of CVA
-Supportive care with antiemetics, Tylenol as needed for headaches, added Mucinex and nasal spray for frontal sinus pressure
-Discontinue estradiol supplementation which she had been taking for control of perimenopausal symptoms
-Recommend she discontinue smoking
- normal Vitamin B12, folate,TSH
- LDL 127, on high intensity statin now, d/w pt potential side effects upon discharge. HDL 49 . Total cholesterol 199. TG 119
# leukocytosis, reactive
No fevers
# Hyponatremia, mild
Total time spent to see the patient, examine the patient, review data and lab results, discuss treatment plan with patient and nursing staff around 55 minutes
Anticipated Discharge: Within 24 hours
Subjective/Interval History
-
Date of Service: August 06, 2024
Objective Data
-
Labs:
Laboratory Results
08/06/24
04:20
WBC 11.6 H
Hgb 14.2
Hct 40.2
Plt Count 318
PT 13.0
INR 0.95
APTT 28.2
Sodium 135
Potassium 4.4
Chloride 102
Carbon Dioxide 20 L
BUN 17
Creatinine 0.7
Glucose 96
Calcium 9.6
Vital Signs:
Vital Signs
Temp Pulse Resp BP Pulse Ox
98.7 F 100 22 126/84 96
08/06/24 06:53 08/06/24 06:00 08/06/24 06:00 08/06/24 06:00 08/06/24 04:00
I&O
08/05/24 08/06/24 08/07/24
06:59 06:59 06:59
Intake Total 200 / 200 100 / 100
Output Total 250 / 250
Balance 200 / 200 -150 / -150
[2024-08-06] MEDS: MUCINEX 1200 MG PO ×2 (07:41→19:47)
[2024-08-06] MEDS: PEPCID 20 MG PO (07:41)
[2024-08-06] MEDS: LOW STRENGTH ASPIRIN 81 MG PO (07:42)
[2024-08-06] MEDS: ANTIVERT 12.5 MG PO (07:42)
[2024-08-06] MEDS: PLAVIX 75 MG PO (07:42)
[2024-08-06] MEDS: ALDACTONE 50 MG PO (07:42)
--- NOTE | 2024-08-06 08:00 | PTCARENOTE ---
Assumed care of patient. A&Ox3. Pleasant. Flat affect. Denies any pain. NIHSS...left hand tingling...no other deficits. Pt states shes 'feeling depressed and frustrated w/ diagnosis'. Emotional support provided. S1 S2 reg w/ NSR on monitor.
+PP. No edema. On R/A..sats 98%. Lungs clear. Abdomen soft and nontender...+BS. Continent of bloody urine...pt has menses. Skin WNL. 18P RAC capped. 20P LFA capped. VS documented. On regular diet. Takes pills whole w/o issue. Call sawyer
within reach. Will continue to monitor.
[2024-08-06 08:04] LABS: Homocysteine 10 umol/L (0-15)
--- NOTE | 2024-08-06 08:18 | W.PN.INTV ---
Today's Communication / Plan
Recommendations
Continue neurochecks with frequency dictated by neurology
NIHSS per shift
Stat CT head if there is any change in neurochecks or new concerning symptoms
High intensity statin
DAPT with ASA + Plavix x 21 days, then indefinite ASA 81mg daily
CT head repeated on 08/04/2024 showing stable 4.5 cm subacute nonhemorrhagic multifocal left cerebellar infarct
Stat CT head for any sudden change in her symptoms or neurochecks/NIHSS
Brain MRI performed yesterday shows progressing left cerebellar infarct
Patient stable for downgrade out of ICU to IMU, which was discussed with neurology and Dr. Porras agrees. No additional recommendations at this time. Airworthiness Inspector/Pulmonary service will now sign off. Please reconsult if there are any additional
questions/concerns, or if patient's respiratory status deteriorates.
Assessment
-
49-year-old smoking female with a history of insomnia, GERD, ADHD who presented with sudden onset dizziness and left-sided paresthesias found to have cerebellar CVA and partner management consultant consulted for CVA/critical care management 08/03/2024.
Acute/subacute left SCA/PICA infarct � MRI brain from 08/02/2024 showed large acute infarct of the left cerebellar hemisphere which showed progression on MRI brain from 08/05/2024
Left vertebral artery occlusion
Leukocytosis � resolved as of 08/05/2024
Conditions present prior to admission:
GERD.
Cigarette smoker.
ADHD.
Plan
Patient is doing well although still with dizziness with occasional nausea and left hand 1st�2nd digit numbness
Supplement oxygen if needed keeping SpO2 >92%
Aspiration precautions
Nebulizers if needed-currently not bronchospastic
CXR shows no acute cardiopulmonary process
Neurology evaluation-correspondence reviewed
Neurochecks
Echocardiogram with bubble study done 08/03/2024 shows no evidence of shunting with normal LVEF at 67% with no regional WMA seen, also no significant valvular disease
DAPT for 21 days and then lifelong aspirin 81mg daily
High intensity statin
A1c: 5.3 on 08/02/2024
Eventual hematology consultation for hypercoagulable workup (she is on HRT for menopausal symptoms and was smoking cigarettes)
Smoking cessation counseling provided
Nicotine patch if needed
Outpatient pulmonary follow-up including PFTs, ongoing smoking cessation counseling and evaluation for low-dose lung cancer screening CT
Patient stable for downgrade out of ICU to IMU, which was discussed with neurology. No additional recommendations at this time. Airworthiness Inspector/Pulmonary service will now sign off. Thank you for allowing us to be involved in the care of this patient.
Please reconsult if there are any additional questions/concerns, or if patient's respiratory status deteriorates.
Total time spent today was 36 minutes for this encounter. Time includes reviewing laboratory test/imaging results, reviewing pertinent medical records, obtaining and reviewing medical history, performing an appropriate exam, ordering medications,
tests and procedures. Time also includes documentation of this encounter, coordinating patient care and communicating with other healthcare professionals. Total time does not include separately billed tests performed on this date of service.
Diagnostic data:
Chest x-ray 08/03/2024-final impression pending - appears normal with no acute cardiopulmonary process to my read
CT head 08/02/2024-normal
CT head and neck angiogram 08/02/2024-small caliber left vertebral artery is occluded just distal to the origin
Brain MRI 08/02/2024-large acute infarct left cerebellar hemisphere, small region left lateral medulla may be secondary to subacute ischemia
Brain MRI 08/05/2024: The volume and extent of previously described large left cerebellar infarct has progressed; No associated significant mass effect; No hemorrhage; No other significant change. No acute supratentorial infarct.
Subjective Dataa
Subjective Data
Date of Service:
Date of Service: August 06, 2024
Chief Complaint: Airworthiness Inspector Follow Up
Subjective:
Patient seen and evaluated today at bedside. Patient had continued symptoms yesterday and MRI brain showed progressing large left cerebellar infarct. She feels well this AM. Still has a frontal headache and feels dizzy mainly with movement, but
no clamminess. Heart rate 82 and BP 141/97, saturating 97% on room air. She denies chest pain, nausea, fevers or chills.
Review of Systems
General: Other (Negative unless mentioned above)
Objective Data
Data Reviewed
Vital Signs / I&O / Oxygen:
Vital Signs
Temp Pulse Resp BP Pulse Ox
98.7 F 82 22 124/84 96
08/06/24 06:53 08/06/24 07:42 08/06/24 06:00 08/06/24 07:42 08/06/24 04:00
Intake and Output
08/05/24 08/06/24 08/07/24
06:59 06:59 06:59
Intake Total 200 / 200 100 / 100
Output Total 250 / 250
Balance 200 / 200 -150 / -150
SaO2 96
Nasal Cannula flow liters per 100
minute
Physical Exam
General: Respiratory Distress (negative), Comfortable, Chills (negative) and Sweats (negative)
HEENT: Normocephalic and Anicteric
Cardiovascular: S1-S2, Rub (negative) and Peripheral Edema (negative)
Respiratory: Clear, Wheeze (negative), Crackles (negative), Rhonchi (negative), Non-Labored Respirations and Stridor (negative)
GI: Soft, Non Distended, Non Tender and Normal Bowel Sounds
Neurology: AO x 3, No Motor Deficits (Plantar/-dorsiflexion bilaterally: 5/5; income tax expert strength bilaterally: 5/5), Tremors (negative), Other (Normal shoulder shrug, normal H test, able to keep eyes closed against resistance, normal sensation along the
face, able to protrude tongue with lateral movement intact, pupillary reflexes intact bilaterally; normal smile) and Other (Numbness in the left thumb through second digit)
Skin: Warm, Dry, Cyanosis (negative) and Jaundice (negative)
Labs/Micro/Reports
Lab Data
08/06/24 04:20
08/06/24 04:20
Laboratory Results
08/06/24
04:20
PT 13.0
INR 0.95
APTT 28.2
--- NOTE | 2024-08-06 08:40 | W.PN.NEURO.1 ---
Today's Communication / Plan
-
Continue to monitor patient in either intensive care unit or IMU for additional 24 hours, then consider downgrade to IMU if no additional symptoms arise. After additional 24 hours in that situation, and no additional symptoms or improvement, would
downgrade to floor monitoring for 24 hours
Provide metoclopramide for headache
Change meclizine to as needed
Lifelong aspirin 81 mg daily
Discontinue clopidogrel after a total of 21 days of therapy
Reimage if new symptomatology
Unfortunately, would discontinue nicotine patch due to mild worsening of symptoms while hospitalized and risk of worsening with nicotine although unlikely at this timeframe
Neuro Assessment/Plan
Assessment
I. Acute acute/subacute left SCA/PICA ischemic infarct, clinically worse.
II. Left vertebral artery occlusion.
III. Nicotine addiction.
Plan
Continue to monitor patient in either intensive care unit or IMU for additional 24 hours, then consider downgrade to IMU if no additional symptoms arise. After additional 24 hours in that situation, and no additional symptoms or improvement, would
downgrade to floor monitoring for 24 hours
Provide metoclopramide for headache
Change meclizine to as needed
Lifelong aspirin 81 mg daily
Discontinue clopidogrel after a total of 21 days of therapy
Reimage if new symptomatology
Unfortunately, would discontinue nicotine patch due to mild worsening of symptoms while hospitalized and risk of worsening with nicotine although unlikely at this timeframe
Continue atorvastatin, newly initiated at 40 mg daily
Continue rehabilitation evaluations
Patient already provided with medical educational materials
Lifelong avoidance of hormonal replacement therapy
For now, may avoid amphetamine replacement
Will need repeated hypercoagulable blood work in 6 weeks to compare with current testing
Subjective/Objective
Subjective Data
Date of Service: August 06, 2024
Nausea, headache yesterday. Today decreased appetite. Left hand improved
Objective Data
Vital Signs
Temp Pulse Resp BP Pulse Ox
37.1 C 82 22 124/84 96
08/06/24 06:53 08/06/24 07:42 08/06/24 06:00 08/06/24 07:42 08/06/24 04:00
Lab Results
08/06/24 04:20
08/06/24 04:20
PT 13.0 Sec (11.4-14.6) 08/06/24 04:20
INR 0.95 08/06/24 04:20
APTT 28.2 Sec (23.4-35.0) 08/06/24 04:20
Sodium 135 mmol/L (135-145) 08/06/24 04:20
Potassium 4.4 mmol/L (3.5-5.1) 08/06/24 04:20
BUN 17 mg/dl (7-17) 08/06/24 04:20
Glucose 96 mg/dl (70-99) 08/06/24 04:20
Calcium 9.6 mg/dl (8.4-10.2) 08/06/24 04:20
LDL Cholesterol, Calc Cancelled 08/02/24 10:33
Vitamin B12 832 pg/ml (239-931) 08/03/24 12:42
Ur Buprenorphine Negative (Negative) 08/02/24 15:58
Patient Allergies
No Known Allergies Allergy (Unverified 08/02/24 08:05)
Review of Systems
-
History Source: Patient
All other systems: Reviewed and negative
EENT: Negative Blurry Vision or Swallowing Difficulty
Respiratory: Negative Trouble Breathing
Cardiac: Negative Chest Pain
Abdomen/GI: Negative Incontinence of Stool
Genitourinary: Negative Incontinence
Musculoskeletal: Back Pain and Neck Pain (chronic)
Neuro: Headache (09/24, constant) and Numbness (left hand, all fingers); Negative Dizzy
Physical Exam
-
General: No Apparent Distress and Appears Stated Age
Eyes: Round OU, [place] Conjunctivae and No Ptosis
HEENT: Anicteric and Moist Mucous Membranes
Neck: Full Range of Motion
Respiratory: No Dyspnea
Cardiac: No JVD
GI: Non-distended
Skin: Unremarkable
Extremities: No Clubbing, No Cyanosis and No Edema
Psych: Negative Intact Judgement/Insight
Extended Neurological Exam
Mood & Affect: Anxious
Attention Span & Concentration: Awake, Alert, Interactive and No Difficulty with 2 Step Request
Memory: Unremarkable
Tremor: Hand Tremor Absent and Head Tremor Absent
Speech: Quality Unremarkable and Quantity Unremarkable
Cranial Nerve II: Left Eye: Pupillary Size Unremarkable and Visual Sinclair Grossly Intact
Cranial Nerve II: Right Eye: Pupillary Size Unremarkable and Visual Sinclair Grossly Intact
Cranial Nerves III, IV, : Extraocular Movement: Grossly Intact
Cranial Nerve VII: Facial Symmetry: Normal Facial Symmetry
Cranial Nerve VIII: Hearing: Unremarkable Hearing to Normal Conversational Volume
Cranial Nerve XI: Shoulder Shrug: Unremarkable
Muscle Strength, Overall: Full in Upper Extremities
Muscle Bulk & Tone: Bulk Unremarkable and Tone Unremarkable
Pronator Drift: Drift in Left Upper Extremity (Trace); Negative Drift in Right Upper Extremity, Drift in Left Lower Extremity or Drift in Right Lower Extremity
Touch Sensation: Unremarkable
Coordination: [id number] Testing Unremarkable
Data Reviewed
-
MRI Head: Report Reviewed and Image Reviewed
Labs: Report Reviewed
Lipid Profile: Report Reviewed
Reviewed with: Physician, Nurse and Patient
Old Records: Summarized
Past History
Past History
ED Past Medical History: CVA (Left cerebellum July 2024)
Social History
Tobacco: Smoker
Family History
Family History: Other (Hypercoagulable state in the patient's father of unclear etiology)
Medications
-
Medications:
Generic Name Dose Route Start Last Admin
Trade Name Freq PRN Reason Stop Dose Admin
Acetaminophen 650 mg 08/02/24 12:11 08/05/24 19:31
Acetaminophen 325 Mg Tablet PO 08/30/24 12:10 650 mg
Q4HPRN PRN Administration
mild pain/MOSES/temp> 100.4F
Aspirin 81 mg 08/03/24 08:00 08/06/24 07:42
Aspirin 81 Mg Chewable Tablet PO 08/31/24 07:59 81 mg
DAILY ELADIO Administration
Atorvastatin Calcium 40 mg 08/02/24 18:00 08/05/24 17:52
Atorvastatin (Lipitor) 40 Mg Tablet PO 08/30/24 17:59 40 mg
QPM ELADIO Administration
Bisacodyl 10 mg 08/02/24 12:11
Bisacodyl 10 Mg Rectal Suppository RECTAL 08/30/24 12:10
[id number] PRN
constipation
Clopidogrel Bisulfate 75 mg 08/03/24 08:00 08/06/24 07:42
Clopidogrel 75 Mg Tablet PO 08/31/24 07:59 75 mg
DAILY ELADIO Administration
Diphenhydramine HCl 25 mg 08/03/24 09:50 08/06/24 04:37
Diphenhydramine 50 Mg/Ml 1 Ml Vial IV 08/31/24 09:49 25 mg
Q6HPRN PRN Administration
headache
Enoxaparin Sodium 40 mg 08/02/24 18:00 08/05/24 17:52
Enoxaparin Sodium 40 Mg/0.4 Ml Syringe SC 08/30/24 17:59 40 mg
QPM ELADIO Administration
Famotidine 20 mg 08/03/24 15:00 08/06/24 07:41
Famotidine 20 Mg Tablet PO 08/31/24 14:59 20 mg
DAILY ELADIO Administration
Guaifenesin 1,200 mg 08/04/24 20:00 08/06/24 07:41
Guaifenesin 600 Mg Extended Release Tablet PO 09/01/24 19:59 1,200 mg
Q12 ELADIO Administration
Lorazepam 1 mg 08/05/24 11:17
Lorazepam 2 Mg/Ml Vial IV 09/02/24 11:16
ONCE PRN
PRIOR TO MRI
Meclizine HCl 12.5 mg 08/05/24 16:00 08/06/24 07:42
Meclizine 12.5 Mg Tablet PO 09/02/24 15:59 12.5 mg
TID ELADIO Administration
Metoclopramide HCl 10 mg 08/03/24 09:49 08/06/24 04:33
Metoclopramide 10 Mg/2 Ml Vial IV 08/31/24 09:48 10 mg
Q6HPRN PRN Administration
nausea
Nicotine 7 mg 08/02/24 16:00 08/06/24 07:41
Nicotine 7 Mg Patch TRANSDERM 08/30/24 15:59 Not Given
DAILY ELADIO
Patch Removal 0 patch 08/02/24 22:00 08/05/24 21:56
Remove Nicotine Patch REMOVE 08/30/24 21:59 Not Given
HS ELADIO
Polyethylene Glycol 17 grams 08/02/24 12:11
Polyethylene Glycol Powder 17 Grams Packet PO 08/30/24 12:10
DAILYPRN PRN
constipation
Senna/Docusate Sodium 1 tablet 08/02/24 12:11
Docusate W/Senna (Willa-Colace) Tablet PO 08/30/24 12:10
BIDPRN PRN
constipation
Sodium Chloride 0 flush 08/03/24 01:00
Sodium Chloride 0.9% (Flush) Syringe IV 08/31/24 00:59
PER PROTOCOL ELADIO
Sodium Chloride 0 sprays 08/04/24 10:11 08/04/24 10:39
Sodium Chloride 0.65% Nasal [place] 45 Ml Bottle NASAL 09/01/24 10:10 1 sprays
QIDPRN PRN Administration
congestion
Sodium Chloride 0.5 ml 08/05/24 11:24
Nss (Pf) 10 Ml Vial For Ativan 1 Mg Dose IV 09/02/24 11:23
ONCE PRN
LORAZEPAM DILUTION
Spironolactone 50 mg 08/03/24 08:00 08/06/24 07:42
Spironolactone 50 Mg Tablet PO 08/31/24 07:59 50 mg
DAILY ELADIO Administration
Zolpidem Tartrate 5 mg 08/03/24 17:33 08/05/24 21:56
Zolpidem Tartrate 5 Mg Tablet PO 08/31/24 17:32 5 mg
HSPRN PRN Administration
insomnia
--- NOTE | 2024-08-06 11:57 | CON.ONC ---
Impression
Impression
- left vertebral artery CVA
- recent initiation of HRT
- active smoker
Plan
Plan
# Left vertebral artery CVA
- possibly embolic in nature with hypercoaguable state related to recent initiation of hormone replacement therapy in addition to chronic tobacco use. No prior hx of venous or arterial clotting events. no evidence of PFO on TTE. no hx of chronic
inflammation, AI conditions, recent travel, miscarriages. Family hx of clotting complications (mostly arterial) in her father in the setting of multiple comorbidities. Pt with no prior pregnancies or major surgery as environmental hypercoagulable
stressors. no hx of HLD, HTN, DM, obesity.
- thrombophilia panel including APLAS ordered.
- neurology following. pt started on statin, plavix x 3 weeks and likely long ASA.
- will arrange hematology follow up to review pending thrombophilia testing.
Patient History
History of Present Illness
Ms. Estrada is a 49-year-old female with a medical history of GERD and ADHD who presented with dizziness and left-sided paresthesias. Per EMS, she had some repetitive questioning and expressive aphasia, and reported mild left-sided facial droop.
A prehospital stroke alert had been called. Her NIH stroke score was 4, minor left facial droop, mild left arm drift, mild left leg drift, mild aphasia. CT imaging of her head and neck showed small caliber left vertebral artery occlusion just
distal to its origin with reconstitution in C1, otherwise normal. MRI confirmed L vertebral artery occlusion. Thrombolytics were contraindicated considering unclear time of symptom onset. She was loaded with aspirin and Plavix. Labs were
remarkable for mild hyponatremia with a sodium of 131 and a mild leukocytosis of 11.4.
Of note she recently was started on estradiol hormone replacement therapy on 07/27 however had been on low dose estrogen containing control for decades that was just stopped recently to check hormone levels and confirm menopausal status. She
denies any recent illness or sick contacts. She is a half a pack per day current smoker x 20 years. She denies heavy alcohol use. Family history is significant for father with multiple CVAs who ultimately of complications from strokes in his
early 60s. This was in the setting of DM, CAD, HTN etc. She has no prior pregnancies or miscarriages. She denies hx of autoimmune or auto-inflammatory conditions. Echo showed no valvular vegetations, atrial thrombus no evidence of interatrial shunt
to suggest clinically significant PFO. Denies personal hx of uncontrolled BP, HLD, DM. She has normal body habitus.
Past-Medical/Surgical History
- GERD
- ADHD
Patient Medication
�Medication �Instructions �Recorded �Confirmed �Last Taken �Type
diphenhydramine 25 1 tab PO HSPRN PRN sleep 08/02/24 08/02/24 08/01/24 History
mg-acetaminophen 500 mg tablet
(Acetaminophen PM)
esomeprazole magnesium 40 mg 40 mg PO DAILY Gastrointestinal 08/02/24 08/02/24 08/02/24 History
capsule,delayed release (Nexium) Issue
estradiol 1 mg tablet 1 mg PO DAILY Hormonal Agent 08/02/24 08/02/24 08/02/24 History
eszopiclone 3 mg tablet (Lunesta) 3 mg PO HS Sleep 08/02/24 08/02/24 08/01/24 History
famotidine 40 mg tablet (Pepcid) 40 mg PO HS Gastrointestinal Issue 08/02/24 08/02/24 Unknown History
lisdexamfetamine 40 mg capsule 40 mg PO DAILY Neurological 08/02/24 08/02/24 08/02/24 History
(Vyvanse) Condition
spironolactone 50 mg tablet 50 mg PO DAILY Blood Pressure 08/02/24 08/02/24 08/02/24 History
Active Medications
Generic Name Dose Route Start Last Admin
Trade Name Freq PRN Reason Stop Dose Admin
Acetaminophen 650 mg 08/02/24 12:11 08/05/24 19:31
Acetaminophen 325 Mg Tablet PO 08/30/24 12:10 650 mg
Q4HPRN PRN Administration
mild pain/MOSES/temp> 100.4F
Aspirin 81 mg 08/03/24 08:00 08/06/24 07:42
Aspirin 81 Mg Chewable Tablet PO 08/31/24 07:59 81 mg
DAILY ELADIO Administration
Atorvastatin Calcium 40 mg 08/02/24 18:00 08/05/24 17:52
Atorvastatin (Lipitor) 40 Mg Tablet PO 08/30/24 17:59 40 mg
QPM ELADIO Administration
Bisacodyl 10 mg 08/02/24 12:11
Bisacodyl 10 Mg Rectal Suppository RECTAL 08/30/24 12:10
[id number] PRN
constipation
Clopidogrel Bisulfate 75 mg 08/03/24 08:00 08/06/24 07:42
Clopidogrel 75 Mg Tablet PO 08/31/24 07:59 75 mg
DAILY ELADIO Administration
Diphenhydramine HCl 25 mg 08/03/24 09:50 08/06/24 04:37
Diphenhydramine 50 Mg/Ml 1 Ml Vial IV 08/31/24 09:49 25 mg
Q6HPRN PRN Administration
headache
Docusate Sodium 100 mg 08/06/24 09:48
Docusate Sodium 100 Mg Capsule PO 09/03/24 09:47
BIDPRN PRN
no BM > 24 hours
Enoxaparin Sodium 40 mg 08/02/24 18:00 08/05/24 17:52
Enoxaparin Sodium 40 Mg/0.4 Ml Syringe SC 08/30/24 17:59 40 mg
QPM ELADIO Administration
Famotidine 20 mg 08/03/24 15:00 08/06/24 07:41
Famotidine 20 Mg Tablet PO 08/31/24 14:59 20 mg
DAILY ELADIO Administration
Guaifenesin 1,200 mg 08/04/24 20:00 08/06/24 07:41
Guaifenesin 600 Mg Extended Release Tablet PO 09/01/24 19:59 1,200 mg
Q12 ELADIO Administration
Lorazepam 1 mg 08/05/24 11:17
Lorazepam 2 Mg/Ml Vial IV 09/02/24 11:16
ONCE PRN
PRIOR TO MRI
Meclizine HCl 12.5 mg 08/06/24 10:54
Meclizine 12.5 Mg Tablet PO 09/02/24 15:59
TID PRN
Dizziness
Metoclopramide HCl 10 mg 08/06/24 10:54
Metoclopramide 10 Mg/2 Ml Vial IV 08/31/24 09:48
Q6HPRN PRN
Headache
Polyethylene Glycol 17 grams 08/02/24 12:11
Polyethylene Glycol Powder 17 Grams Packet PO 08/30/24 12:10
DAILYPRN PRN
constipation
Senna/Docusate Sodium 1 tablet 08/02/24 12:11
Docusate W/Senna (Willa-Colace) Tablet PO 08/30/24 12:10
BIDPRN PRN
constipation
Sodium Chloride 0 flush 08/03/24 01:00
Sodium Chloride 0.9% (Flush) Syringe IV 08/31/24 00:59
PER PROTOCOL ELADIO
Sodium Chloride 0 sprays 08/04/24 10:11 08/04/24 10:39
Sodium Chloride 0.65% Nasal [place] 45 Ml Bottle NASAL 09/01/24 10:10 1 sprays
QIDPRN PRN Administration
congestion
Sodium Chloride 0.5 ml 08/05/24 11:24
Nss (Pf) 10 Ml Vial For Ativan 1 Mg Dose IV 09/02/24 11:23
ONCE PRN
LORAZEPAM DILUTION
Spironolactone 50 mg 08/03/24 08:00 08/06/24 07:42
Spironolactone 50 Mg Tablet PO 08/31/24 07:59 50 mg
DAILY ELADIO Administration
Zolpidem Tartrate 5 mg 08/03/24 17:33 08/05/24 21:56
Zolpidem Tartrate 5 Mg Tablet PO 08/31/24 17:32 5 mg
HSPRN PRN Administration
insomnia
Review of Systems
-
History Source: Patient
Constitutional: Denies Fever
Respiratory: Denies Cough
Cardiac: Denies Chest Pain, Palpitations or Syncope
GI: Reports Nausea
Musculoskeletal: Denies Joint Pain or Joint Swelling
Skin: Denies Rash
Neuro: Reports Dizzy, Headache and Weakness
Physical Exam
-
General: Well Developed, Well Nourished and No Apparent Distress
HEENT: Negative Jaundice
Cardiology: Normal Sinus Rhythm
Pulmonary: Clear
Musculoskeletal: No Clubbing and No Edema
Extremities: Negative Edema
Neurology: No Word Finding Difficulty
Labs
Lab Results
WBC 11.6 10^3/uL (4.8-10.8) H 08/06/24 04:20
RBC 4.14 10^6/uL (4.20-5.40) L 08/06/24 04:20
Hgb 14.2 g/dL (12.0-16.0) 08/06/24 04:20
Hct 40.2 % (37.0-47.0) 08/06/24 04:20
MCV 97.1 fL (81.0-99.0) 08/06/24 04:20
MCH 34.3 pg (27.0-31.0) H 08/06/24 04:20
MCHC 35.3 g/dL (33.0-37.0) 08/06/24 04:20
RDW 11.7 % (11.5-14.5) 08/06/24 04:20
Plt Count 318 10^3/uL (130-400) 08/06/24 04:20
MPV 10.5 fL (7.4-10.4) H 08/06/24 04:20
Abs Immat Gran (auto) 0.1 10^3/uL (0-0.05) H 08/05/24 04:23
Absolute Neuts (auto) 4.8 10^3/uL (1.4-6.5) 08/05/24 04:23
Absolute Lymphs (auto) 3.8 10^3/uL (1.2-3.4) H 08/05/24 04:23
Absolute Monos (auto) 1.0 10^3/uL (0.1-0.6) H 08/05/24 04:23
Absolute Eos (auto) 0.1 10^3/uL (0-0.7) 08/05/24 04:23
Absolute Basos (auto) 0.1 10^3/uL (0-0.2) 08/05/24 04:23
Immature Gran % 0.7 % (0-0.5) H 08/05/24 04:23
Neutrophils % 49.1 % (42.2-75.2) 08/05/24 04:23
Lymphocytes % 38.4 % (20.5-51.1) 08/05/24 04:23
Monocytes % 9.8 % (1.7-9.3) H 08/05/24 04:23
Eosinophils % 1.4 % (0-6) 08/05/24 04:23
Basophils % 0.6 % (0-2) 08/05/24 04:23
Creatinine 0.7 mg/dL (0.6-1.0) 08/06/24 04:20
Vital Signs
Vital Signs
Temp Pulse Resp BP Pulse Ox
98.4 F 82 21 141/97 97
08/06/24 11:45 08/06/24 11:25 08/06/24 11:25 08/06/24 11:25 08/06/24 11:45
--- NOTE | 2024-08-06 12:30 | PTCARENOTE ---
No major changes in physical assessment. Neuro checks q4h. Left hand tingling remains. Assist x 1 to get OOB and ambulate to bathroom. Hair brushed and face washed...able to sit OOB in chair for 1hr and 20min. Call sawyer within reach. Safe
environment confirmed.
--- NOTE | 2024-08-06 13:44 | CM ---
CM following re: discharge planning.
Discussed in Rounds, reviewed pt's chart. per Rounds meeting pt will be downgraded from ICU level of care.
PT and OT evaluations noted - outpatient PT and OT recommend. Pt is aware, expressed her agreement.
Please provide a script for outpatient PT/OT.
D/C plan: home with outpatient PT/OT. to transport at discharge.
CM will follow with discharge plan updates as needed.
[2024-08-06 13:58] LABS: Protein S Total Antigen 122 % (63-126)
[2024-08-06] MEDS: LOVENOX 40 MG SC (17:10)
[2024-08-06] MEDS: LIPITOR 40 MG PO (17:10)
[2024-08-06 17:36] LABS: Protein C, Total Antigen 88 % (63-153)
[2024-08-06 19:00] LABS: Beta-2-Glycoprotein I Ab. IgG <10 SGU (<=20); Beta-2-Glycoprotein I Ab. IgM <10 SMU (<=20)
[2024-08-06 19:18] LABS: Phosphatidylserine Ab, IgA 0 APS (0-19); Phosphatidylserine Ab, IgG 2 GPS (0-15); Phosphatidylserine Ab, IgM 6 MPS (0-21)
[2024-08-06 19:29] LABS: ANA, IgG Reflex to HEp-2 None Detected (None Detected)
[2024-08-06 19:50] LABS: Anti-Thrombin III Activity 118 % (76-128)
--- NOTE | 2024-08-06 20:15 | PTCARENOTE ---
Rec'd pt resting in bed, slight headache but requests no pain meds at this time, no dizziness presently, left hand & fingers w/ tingling, oriented, cooperative, NIH 1, SR, bp stable, + pulses, no edema, RA, lungs clear, sat 98, + bowel sounds, no
bm, abd soft, no n/v, voiding w/o difficulty
[2024-08-06] MEDS: AMBIEN 5 MG PO (21:59)
--- NOTE | 2024-08-06 22:04 | PTCARENOTE ---
benedryl 25mg iv given for slight headache, ambien 5mg po given for sleep
[2024-08-06 23:07] LABS: Beta-2-Glycoprotein I Ab. IgA <10 SAU (<=20)
[2024-08-07] VITALS (13 sets, daily range): BP systolic 112–145; BP diastolic 75–103; PULSE 74; BMI 23.2
--- NOTE | 2024-08-07 04:00 | PTCARENOTE ---
neuro unch, amb to bathroom to void w/ assistance of one, has not slept much tonight
[2024-08-07 04:32] LABS: Hematocrit 39.4 % (37.0-47.0); Hemoglobin 13.8 g/dL (12.0-16.0); Mean Platelet Volume 10.7 fL (7.4-10.4); Platelet Count 331 10^3/uL (130-400); Red Blood Cell Count 4.06 10^6/uL (4.20-5.40); Red Cell Dist. Width 11.5 % (11.5-14.5); White Blood Cell Count 11.5 10^3/uL (4.8-10.8)
[2024-08-07 04:57] LABS: Blood Urea Nitrogen 19 mg/dl (7-17); Calcium 9.2 mg/dl (8.4-10.2); Carbon Dioxide 21 mmol/L (22-30); Chloride 101 mmol/L (98-107); Estimated Creatinine Clearance 71 ml/min; Glucose 91 mg/dl (70-99); Magnesium 2.1 mg/dl (1.6-2.3); Phosphorus 3.5 mg/dl (2.5-4.5); Potassium 4.4 mmol/L (3.5-5.1); Sodium 134 mmol/L (135-145); eGFR > 60.00
--- NOTE | 2024-08-07 06:37 | W.PN.HOSP.TC ---
Today's Communication/Plan
-
Pt is doing well
f/w neurology recommendations.
Assessment / Plan
Assessment / Plan
PE:
Gen-AAOx3, NAD
HEENT-NC, AT, anicteric, clear oral mm bilateral frontal sinus TTP
Neck-supple
CV-reg, no M, +S1/S2
Lungs-clear B/L
Abd-soft, NT, ND
Musculoskeletal-no edema, no deformity
Skin-warm and dry
Neuro-AAOX3, she followed commands.
Psych-calm, cooperative
Ms. Estrada is a 49-year-old female with a medical history of GERD and ADHD who presented with dizziness and left-sided paresthesias. Symptom onset was upon waking. However, when driving to work she developed left chest tingling sensation that
radiated down her left arm and was also present in her left leg. When she arrived at work, she called EMS who transported her to [facility]. Per EMS, she had some repetitive questioning and expressive aphasia, and reported mild left-sided
facial droop. Of note she recently was started on estradiol hormone replacement therapy this past July 27. She is a half a pack per day current smoker x 20 years. She denies alcohol use. Family history is significant for father with
multiple CVAs who ultimately of complications from strokes in his early 60s. MRI at the time of admission showed large left cerebellar infarct. She has been admitted for further evaluation and management.
Acute CV/ Acute acute/subacute left SCA/PICA infarct
Left vertebral artery occlusion
-Initial MRI shows left cerebellar infarct, angiography shows left vertebral artery occlusion
-Acute recurrence of dizziness and left arm paresthesias this morning 08/05, repeat MRI was obtained and showed progression of prior infarct
She feels dizzy, no hemodynamic instability
-Continue aspirin and Plavix intensity statin
-Currently being monitored in the ICU, can downgrade, will reach out to neurologist.
-Consulted to hematology for thrombophilia workup, f/w OP.
- PT/OT
- Discontinue clopidogrel after a total of 21 days of therapy
-Supportive care with antiemetics, Tylenol as needed for headaches, added Mucinex and nasal spray for frontal sinus pressure
-Discontinue estradiol supplementation which she had been taking for control of perimenopausal symptoms
-Recommend she discontinue smoking
- normal Vitamin B12, folate,TSH
- LDL 127, on high intensity statin now, d/w pt potential side effects upon discharge. HDL 49 . Total cholesterol 199. TG 119
# leukocytosis, reactive
No fevers
# Hyponatremia, mild
Total time spent to see the patient, examine the patient, review data and lab results, discuss treatment plan with patient and nursing staff around 55 minutes
Anticipated Discharge: Within 24 hours
Subjective/Interval History
-
Date of Service: August 07, 2024
She feels better, less dizzy, wants to go home
Unable to sleep in hospital
No chest pain
No worsening hand weakness or numbness.
Objective Data
-
Labs:
Laboratory Results
08/07/24
04:06
WBC 11.5 H
Hgb 13.8
Hct 39.4
Plt Count 331
Sodium 134 L
Potassium 4.4
Chloride 101
Carbon Dioxide 21 L
BUN 19 H
Creatinine 0.8
Glucose 91
Calcium 9.2
Vital Signs:
Vital Signs
Temp Pulse Resp BP Pulse Ox
97.9 F 64 16 129/89 96
08/07/24 04:00 08/07/24 06:09 08/07/24 06:14 08/07/24 06:09 08/07/24 04:00
I&O
08/05/24 08/06/24 08/07/24
06:59 06:59 06:59
Intake Total 200 / 200 100 / 100 1090 / 1090
Output Total 250 / 250 250 / 250
Balance 200 / 200 -150 / -150 840 / 840
[2024-08-07] MEDS: PLAVIX 75 MG PO (07:40)
[2024-08-07] MEDS: MUCINEX 1200 MG PO ×2 (07:40→21:24)
[2024-08-07] MEDS: ALDACTONE 50 MG PO (07:41)
[2024-08-07] MEDS: LOW STRENGTH ASPIRIN 81 MG PO (07:41)
[2024-08-07] MEDS: PEPCID 20 MG PO (07:41)
--- NOTE | 2024-08-07 08:04 | W.PN.NEURO.1 ---
Today's Communication / Plan
-
Continue to monitor patient in IMU for additional 24 hours. After additional 24 hours in that situation, and no additional symptoms or improvement, would downgrade to floor monitoring for 24 hours
Provide metoclopramide for headache
Lifelong aspirin 81 mg daily
Discontinue clopidogrel after a total of 21 days of therapy
Neuro Assessment/Plan
Assessment
I. Acute acute/subacute left SCA/PICA ischemic infarct, clinically worse.
II. Left vertebral artery occlusion.
III. Nicotine addiction.
Plan
Continue to monitor patient in IMU for additional 24 hours. After additional 24 hours in that situation, and no additional symptoms or improvement, would downgrade to floor monitoring for 24 hours
Provide metoclopramide for headache
Lifelong aspirin 81 mg daily
Discontinue clopidogrel after a total of 21 days of therapy
Re-image if new symptomatology
Discontinued nicotine patch due to mild worsening of symptoms while hospitalized and risk of worsening with nicotine although unlikely at this timeframe
Continue atorvastatin, newly initiated at 40 mg daily
Continue rehabilitation evaluations
Lifelong avoidance of hormonal replacement therapy
For now, may avoid amphetamine replacement
Will need repeated hypercoagulable blood work in 6 weeks to compare with current testing
OK for med for sleep
Will follow peripherally.
Subjective/Objective
Subjective Data
Date of Service: August 07, 2024
Improved.
Objective Data
Vital Signs
Temp Pulse Resp BP Pulse Ox
36.6 C 91 16 133/103 96
08/07/24 04:00 08/07/24 07:41 08/07/24 06:14 08/07/24 07:41 08/07/24 04:00
Lab Results
08/07/24 04:06
08/07/24 04:06
PT 13.0 Sec (11.4-14.6) 08/06/24 04:20
INR 0.95 08/06/24 04:20
APTT 28.2 Sec (23.4-35.0) 08/06/24 04:20
Sodium 134 mmol/L (135-145) L 08/07/24 04:06
Potassium 4.4 mmol/L (3.5-5.1) 08/07/24 04:06
BUN 19 mg/dl (7-17) H 08/07/24 04:06
Glucose 91 mg/dl (70-99) 08/07/24 04:06
Calcium 9.2 mg/dl (8.4-10.2) 08/07/24 04:06
Phosphorus 3.5 mg/dl (2.5-4.5) 08/07/24 04:06
LDL Cholesterol, Calc Cancelled 08/02/24 10:33
Vitamin B12 832 pg/ml (239-931) 08/03/24 12:42
Ur Buprenorphine Negative (Negative) 08/02/24 15:58
Patient Allergies
No Known Allergies Allergy (Unverified 08/02/24 08:05)
Review of Systems
-
History Source: Patient
All other systems: Reviewed and negative
EENT: Negative Blurry Vision or Swallowing Difficulty
Respiratory: Negative Trouble Breathing
Cardiac: Negative Chest Pain
Abdomen/GI: Negative Incontinence of Stool
Genitourinary: Negative Incontinence
Musculoskeletal: Neck Pain (chronic); Negative Back Pain
Neuro: Headache (07/27, constant) and Numbness (left hand, all fingers, strongest 1&2 fingers); Negative Dizzy
Physical Exam
-
General: No Apparent Distress and Appears Stated Age
Eyes: Round OU, [employer] Conjunctivae and No Ptosis
HEENT: Anicteric and Moist Mucous Membranes
Neck: Full Range of Motion
Respiratory: No Dyspnea
Cardiac: No JVD
GI: Non-distended
Skin: Unremarkable
Extremities: No Clubbing, No Cyanosis and No Edema
Psych: Intact Judgement/Insight
Extended Neurological Exam
Mood & Affect: Anxious
Attention Span & Concentration: Awake, Alert, Interactive and No Difficulty with 2 Step Request
Memory: Unremarkable
Tremor: Hand Tremor Absent and Head Tremor Absent
Speech: Quality Unremarkable and Quantity Unremarkable
Cranial Nerve II: Left Eye: Pupillary Size Unremarkable and Visual Sinclair Grossly Intact
Cranial Nerve II: Right Eye: Pupillary Size Unremarkable and Visual Sinclair Grossly Intact
Cranial Nerves III, IV, : Extraocular Movement: Grossly Intact
Cranial Nerve VII: Facial Symmetry: Normal Facial Symmetry
Cranial Nerve VIII: Hearing: Unremarkable Hearing to Normal Conversational Volume
Cranial Nerve XI: Shoulder Shrug: Unremarkable
Muscle Strength, Overall: Spontaneously Moves
Muscle Bulk & Tone: Bulk Unremarkable and Tone Unremarkable
Touch Sensation: Unremarkable
Coordination: [id number] Testing Unremarkable
Past History
Past History
ED Past Medical History: CVA (Left cerebellum July 2024), GERD and Other (ADHD)
Social History
Tobacco: Smoker
Alcohol: Occasional
Drug: None
Personal:
Living: with family
Employment: Employed
Family History
Family History: Other (Hypercoagulable state in the patient's father of unclear etiology)
Medications
-
Medications:
Generic Name Dose Route Start Last Admin
Trade Name Freq PRN Reason Stop Dose Admin
Acetaminophen 650 mg 08/02/24 12:11 08/05/24 19:31
Acetaminophen 325 Mg Tablet PO 08/30/24 12:10 650 mg
Q4HPRN PRN Administration
mild pain/MOSES/temp> 100.4F
Aspirin 81 mg 08/03/24 08:00 08/07/24 07:41
Aspirin 81 Mg Chewable Tablet PO 08/31/24 07:59 81 mg
DAILY ELADIO Administration
Atorvastatin Calcium 40 mg 08/02/24 18:00 08/06/24 17:10
Atorvastatin (Lipitor) 40 Mg Tablet PO 08/30/24 17:59 40 mg
QPM ELADIO Administration
Bisacodyl 10 mg 08/02/24 12:11
Bisacodyl 10 Mg Rectal Suppository RECTAL 08/30/24 12:10
[id number] PRN
constipation
Clopidogrel Bisulfate 75 mg 08/03/24 08:00 08/07/24 07:40
Clopidogrel 75 Mg Tablet PO 08/31/24 07:59 75 mg
DAILY ELADIO Administration
Diphenhydramine HCl 25 mg 08/03/24 09:50 08/06/24 21:59
Diphenhydramine 50 Mg/Ml 1 Ml Vial IV 08/31/24 09:49 25 mg
Q6HPRN PRN Administration
headache
Docusate Sodium 100 mg 08/06/24 09:48
Docusate Sodium 100 Mg Capsule PO 09/03/24 09:47
BIDPRN PRN
no BM > 24 hours
Enoxaparin Sodium 40 mg 08/02/24 18:00 08/06/24 17:10
Enoxaparin Sodium 40 Mg/0.4 Ml Syringe SC 08/30/24 17:59 40 mg
QPM ELADIO Administration
Famotidine 20 mg 08/03/24 15:00 08/07/24 07:41
Famotidine 20 Mg Tablet PO 08/31/24 14:59 20 mg
DAILY ELADIO Administration
Guaifenesin 1,200 mg 08/04/24 20:00 08/07/24 07:40
Guaifenesin 600 Mg Extended Release Tablet PO 09/01/24 19:59 1,200 mg
Q12 ELADIO Administration
Meclizine HCl 12.5 mg 08/06/24 10:54
Meclizine 12.5 Mg Tablet PO 09/02/24 15:59
TID PRN
Dizziness
Metoclopramide HCl 10 mg 08/06/24 10:54 08/06/24 12:10
Metoclopramide 10 Mg/2 Ml Vial IV 08/31/24 09:48 10 mg
Q6HPRN PRN Administration
Headache
Polyethylene Glycol 17 grams 08/02/24 12:11
Polyethylene Glycol Powder 17 Grams Packet PO 08/30/24 12:10
DAILYPRN PRN
constipation
Senna/Docusate Sodium 1 tablet 08/02/24 12:11
Docusate W/Senna (Willa-Colace) Tablet PO 08/30/24 12:10
BIDPRN PRN
constipation
Sodium Chloride 0 flush 08/03/24 01:00
Sodium Chloride 0.9% (Flush) Syringe IV 08/31/24 00:59
PER PROTOCOL ELADIO
Sodium Chloride 0 sprays 08/04/24 10:11 08/04/24 10:39
Sodium Chloride 0.65% Nasal [place] 45 Ml Bottle NASAL 09/01/24 10:10 1 sprays
QIDPRN PRN Administration
congestion
Spironolactone 50 mg 08/03/24 08:00 08/07/24 07:41
Spironolactone 50 Mg Tablet PO 08/31/24 07:59 50 mg
DAILY ELADIO Administration
Zolpidem Tartrate 5 mg 08/03/24 17:33 08/06/24 21:59
Zolpidem Tartrate 5 Mg Tablet PO 08/31/24 17:32 5 mg
HSPRN PRN Administration
insomnia
--- NOTE | 2024-08-07 11:40 | CM ---
Addendum entered by Valentin Gunn 08/07/24 14:38:
Per PT, pt will need a script for a walker and a commode and PT will give it to the pt. A script requested
Original Note:
CM following re: discharge planning.
Reviewed pt's chart, met with pt. Per MD anticipated discharge within 24 hours. Neurology following.
PT and OT evaluations noted - outpatient PT and OT recommend. Pt is aware, expressed her agreement.
Please provide a script for outpatient PT/OT.
D/C plan: home with outpatient PT/OT. to transport at discharge.
CM will follow with discharge plan updates as needed.
--- NOTE | 2024-08-07 11:50 | PTCARENOTE ---
pt alert and oriented , NSR on monitor , NIHSS 1 , pt wants to go home , spoke to neurology , plan to keep pt one more day in hospital , pt seen by hospitalist , pt now downgraded to telemetry status
[2024-08-07 14:14] LABS: Cardiolipin IgA Antibody <10 APL (<=11); Cardiolipin IgM Antibody <10 MPL (<=12); Cardiolipin Igg Antibody <10 GPL (<=14)
--- NOTE | 2024-08-07 15:01 | PTCARENOTE ---
pt transferred to room 417-2 , report given to receiving RN
--- NOTE | 2024-08-07 15:01 | TRANSFER ---
Pt transferred from ICU to 4W. AAOx3, NIHSS performed with previous RN - score of 1. Pt only complaint is some numbness/tingling in L hand and fingers but states it has improved from previous days. Plan of care ongoing.
[2024-08-07 16:17] LABS: Lyme Antibody Screen, EIA Negative (Negative)
[2024-08-07] MEDS: LOVENOX 40 MG SC (17:08)
[2024-08-07] MEDS: LIPITOR 40 MG PO (17:09)
[2024-08-07] MEDS: REGLAN 10 MG IV (17:20)
[2024-08-07] MEDS: NON-FORMULARY ITEM 3 MG PO (21:24)
[2024-08-07] MEDS: BENADRYL 25 MG IV (21:26)
--- NOTE | 2024-08-08 02:10 | DOWNTIME ---
There was a [employer] Downtime on 08/08/2024 from 0100 to 08/08/2023 at 0205 . Downtime documentation of patient's care, including medication administrations, has been reconciled in the electronic record per guidelines. Refer to the
patient's paper chart under the miscellaneous tab to see printed paper medication records and downtime forms.
[2024-08-08 03:11] VITALS: BP 115/77
[2024-08-08 07:40] VITALS: BP 125/85
[2024-08-08] MEDS: MUCINEX 1200 MG PO (07:43)
[2024-08-08] MEDS: LOW STRENGTH ASPIRIN 81 MG PO (07:43)
[2024-08-08] MEDS: PEPCID 20 MG PO (07:43)
[2024-08-08] MEDS: PLAVIX 75 MG PO (07:43)
[2024-08-08] MEDS: ALDACTONE 50 MG PO (07:43)
--- NOTE | 2024-08-08 09:31 | W.PN.NEURO.1 ---
Today's Communication / Plan
-
Provide metoclopramide for headache as needed
Lifelong aspirin 81 mg daily
Discontinue clopidogrel after a total of 21 days of therapy
Discontinued nicotine patch due to mild worsening of symptoms while hospitalized and risk of worsening with nicotine although unlikely at this timeframe
Continue atorvastatin, newly initiated at 40 mg daily
Will need repeated hypercoagulable blood work in 6 weeks to compare with current testing
Neuro Assessment/Plan
Assessment
I. Acute acute/subacute left SCA/PICA ischemic infarct, clinically worse.
II. Left vertebral artery occlusion.
III. Nicotine addiction.
Plan
Provide metoclopramide for headache as needed
Lifelong aspirin 81 mg daily
Discontinue clopidogrel after a total of 21 days of therapy
Re-image if new symptomatology
Discontinued nicotine patch due to mild worsening of symptoms while hospitalized and risk of worsening with nicotine although unlikely at this timeframe
Continue atorvastatin, newly initiated at 40 mg daily
Continue rehabilitation evaluations
Lifelong avoidance of hormonal replacement therapy
Will need repeated hypercoagulable blood work in 6 weeks to compare with current testing
OK for med for sleep
Will follow as outpatient.
Subjective/Objective
Subjective Data
Date of Service: August 08, 2024
Patient feels improved
Objective Data
Vital Signs
Temp Pulse Resp BP Pulse Ox
36.7 C 79 18 125/85 98
08/08/24 07:40 08/08/24 07:40 08/08/24 07:40 08/08/24 07:40 08/08/24 07:40
Lab Results
08/07/24 04:06
08/07/24 04:06
PT 13.0 Sec (11.4-14.6) 08/06/24 04:20
INR 0.95 08/06/24 04:20
APTT 28.2 Sec (23.4-35.0) 08/06/24 04:20
Sodium 134 mmol/L (135-145) L 08/07/24 04:06
Potassium 4.4 mmol/L (3.5-5.1) 08/07/24 04:06
BUN 19 mg/dl (7-17) H 08/07/24 04:06
Glucose 91 mg/dl (70-99) 08/07/24 04:06
Calcium 9.2 mg/dl (8.4-10.2) 08/07/24 04:06
Phosphorus 3.5 mg/dl (2.5-4.5) 08/07/24 04:06
LDL Cholesterol, Calc Cancelled 08/02/24 10:33
Vitamin B12 832 pg/ml (239-931) 08/03/24 12:42
Ur Buprenorphine Negative (Negative) 08/02/24 15:58
Patient Allergies
No Known Allergies Allergy (Unverified 08/02/24 08:05)
Review of Systems
-
History Source: Patient
All other systems: Reviewed and negative
Neuro: Other (Left hand sensory change); Negative Dizzy or Headache
Physical Exam
-
General: No Apparent Distress and Appears Stated Age
Eyes: Round OU, [place] Conjunctivae and No Ptosis
HEENT: Anicteric and Moist Mucous Membranes
Neck: Full Range of Motion
Respiratory: No Dyspnea
Cardiac: No JVD
GI: Non-distended
Skin: Unremarkable
Extremities: No Clubbing, No Cyanosis and No Edema
Psych: Intact Judgement/Insight
Extended Neurological Exam
Mood & Affect: Mood Unremarkable and Affect Unremarkable
Attention Span & Concentration: Awake, Alert, Interactive and No Difficulty with 2 Step Request
Memory: Unremarkable
Tremor: Hand Tremor Absent and Head Tremor Absent
Speech: Quality Unremarkable and Quantity Unremarkable
Cranial Nerve II: Left Eye: Pupillary Size Unremarkable and Visual Sinclair Grossly Intact
Cranial Nerve II: Right Eye: Pupillary Size Unremarkable and Visual Sinclair Grossly Intact
Cranial Nerves III, IV, : Extraocular Movement: Grossly Intact
Cranial Nerve VII: Facial Symmetry: Normal Facial Symmetry
Cranial Nerve VIII: Hearing: Unremarkable Hearing to Normal Conversational Volume
Cranial Nerve XI: Shoulder Shrug: Unremarkable
Muscle Strength, Overall: Spontaneously Moves
Muscle Bulk & Tone: Bulk Unremarkable and Tone Unremarkable
Coordination: Reaches for Objects without Difficulty
Data Reviewed
-
Labs: Report Reviewed
Reviewed with: Physician and Patient
Old Records: Summarized
Past History
Past History
ED Past Medical History: CVA (Left cerebellum July 2024), GERD and Other (ADHD)
ED Past Surgical History: None
Social History
Tobacco: Smoker
Alcohol: Occasional
Drug: None
Personal:
Living: with family
Employment: Employed
Family History
Family History: Other (Hypercoagulable state in the patient's father of unclear etiology)
Medications
-
Medications:
Generic Name Dose Route Start Last Admin
Trade Name Freq PRN Reason Stop Dose Admin
Acetaminophen 650 mg 08/02/24 12:11 08/05/24 19:31
Acetaminophen 325 Mg Tablet PO 08/30/24 12:10 650 mg
Q4HPRN PRN Administration
mild pain/MOSES/temp> 100.4F
Aspirin 81 mg 08/03/24 08:00 08/08/24 07:43
Aspirin 81 Mg Chewable Tablet PO 08/31/24 07:59 81 mg
DAILY ELADIO Administration
Atorvastatin Calcium 40 mg 08/02/24 18:00 08/07/24 17:09
Atorvastatin (Lipitor) 40 Mg Tablet PO 08/30/24 17:59 40 mg
QPM ELADIO Administration
Bisacodyl 10 mg 08/02/24 12:11
Bisacodyl 10 Mg Rectal Suppository RECTAL 08/30/24 12:10
[id number] PRN
constipation
Clopidogrel Bisulfate 75 mg 08/03/24 08:00 08/08/24 07:43
Clopidogrel 75 Mg Tablet PO 08/31/24 07:59 75 mg
DAILY ELADIO Administration
Diphenhydramine HCl 25 mg 08/03/24 09:50 08/07/24 21:26
Diphenhydramine 50 Mg/Ml 1 Ml Vial IV 08/31/24 09:49 25 mg
Q6HPRN PRN Administration
headache
Docusate Sodium 100 mg 08/06/24 09:48
Docusate Sodium 100 Mg Capsule PO 09/03/24 09:47
BIDPRN PRN
no BM > 24 hours
Enoxaparin Sodium 40 mg 08/02/24 18:00 08/07/24 17:08
Enoxaparin Sodium 40 Mg/0.4 Ml Syringe SC 08/30/24 17:59 40 mg
QPM ELADIO Administration
Famotidine 20 mg 08/03/24 15:00 08/08/24 07:43
Famotidine 20 Mg Tablet PO 08/31/24 14:59 20 mg
DAILY ELADIO Administration
Guaifenesin 1,200 mg 08/04/24 20:00 08/08/24 07:43
Guaifenesin 600 Mg Extended Release Tablet PO 09/01/24 19:59 1,200 mg
Q12 ELADIO Administration
Meclizine HCl 12.5 mg 08/06/24 10:54
Meclizine 12.5 Mg Tablet PO 09/02/24 15:59
TID PRN
Dizziness
Metoclopramide HCl 10 mg 08/06/24 10:54 08/07/24 17:20
Metoclopramide 10 Mg/2 Ml Vial IV 08/31/24 09:48 10 mg
Q6HPRN PRN Administration
Headache
Eszopiclone (Lunesta 0 mg 08/07/24 22:00 08/07/24 21:24
) 3 Mg - Take 1 PO 09/04/24 21:59 3 mg
Tablet At Bedtime HS ELADIO Administration
Polyethylene Glycol 17 grams 08/02/24 12:11
Polyethylene Glycol Powder 17 Grams Packet PO 08/30/24 12:10
DAILYPRN PRN
constipation
Senna/Docusate Sodium 1 tablet 08/02/24 12:11
Docusate W/Senna (Willa-Colace) Tablet PO 08/30/24 12:10
BIDPRN PRN
constipation
Sodium Chloride 0 flush 08/03/24 01:00
Sodium Chloride 0.9% (Flush) Syringe IV 08/31/24 00:59
PER PROTOCOL ELADIO
Sodium Chloride 0 sprays 08/04/24 10:11 08/04/24 10:39
Sodium Chloride 0.65% Nasal [place] 45 Ml Bottle NASAL 09/01/24 10:10 1 sprays
QIDPRN PRN Administration
congestion
Spironolactone 50 mg 08/03/24 08:00 08/08/24 07:43
Spironolactone 50 Mg Tablet PO 08/31/24 07:59 50 mg
DAILY ELADIO Administration
[2024-08-08] MEDS: AFLURIA (36 mos+) 2024-2025 FORMULA 0.5 ML IM (09:38)
[2024-08-08 11:00] VITALS: BP 137/84
--- NOTE | 2024-08-08 11:21 | CM ---
Pt medically stable for d/c today
Pt was provided scripts for commode, RW and OP therapy. PT to provide commode and RW
No other CM needs identified
Plan: Home w/ script for OP PT/OT
--- NOTE | 2024-08-08 11:38 | W.DCSUMMARY ---
Discharge Summary
Discharge Data
Date of Admission: 08/02/24
Date of Discharge: 08/08/24
-
Pending Results: No
Hospital Course
49 years old female with a history of insomnia, GERD, tobacco smoking, ADHD who presented with history of vertigo, balance difficulties and left-sided paresthesias that were noticed after waking up from sleep. Initial scan of the head came back
normal. CTA of the head and neck showed small caliber left vertebral artery occlusion with no aneurysm or vascular malformation. Brain MRI showed large acute acute/subacute left cerebellar hemisphere, smaller region of signal alteration in the left
lateral medulla, might be secondary to subacute ischemia. Patient was transferred to intensive care unit for close observation and monitoring. She was followed by local driver and neurologist. EKG was unremarkable, echocardiogram of the heart was
unremarkable with no evidence of inter-atrial shunt by Doppler/agitated saline. patient received dual antiplatelet therapy with statin therapy. Patient had recent started hormonal replacement therapy. She was advised to avoid further hormonal
therapy. She was counseled about secondary prevention measures including tobacco cessation. She was seen by grinder and honer operator automatic and advised to follow in outpatient setting to rule out thrombophilia etiology. Patient complained of left thumb numbness
with dizziness/headache. Repeat MRI of the brain showed the volume and extent of infarct had progressed. , Give as needed metoclopramide, as needed meclizine. Blood work showed normal TSH, normal folate, vitamin B12 and homocystine. LDL 127,
HDL 49, triglyceride 119, total cholesterol 199. Patient was counseled regarding potential side effects of antiplatelet therapy and statin therapy, she verbalized understanding. Her symptoms improved with resolution of vertigo and headache. She
was followed by PT/OT and recommended outpatient therapy. Patient was advised to avoid driving until she sees her doctors in outpatient setting. Blood pressure remained stable. She was going to follow-up with oncology/hematology in the office for
further workup. Patient remained hemodynamically stable and was discharged home in a stable condition.
Discharge Plan
-
Patient Disposition: Home (Routine Discharge)
Discharge Diagnosis/Procedures: Acute acute/subacute left SCA/PICA ischemic infarct
Left vertebral artery occlusion
You were treated in ICU, seen by neurologist, grinder and honer operator automatic, ICU doctors. You received treatments.
Lifelong avoidance of hormonal replacement therapy
Lifelong aspirin 81 mg daily
Discontinue clopidogrel after a total of 21 days of therapy from starting the medicine.
Potential side effects of aspirin and Plavix include bruising, bleeding tendency.
Potential side effects of atorvastatin include muscle pain/myositis/myopathy, elevated liver enzymes.
Avoid tobacco use
Diet: As tolerated and Low Fat
Driving Restrictions: Not until seen by your Dr
Blood Work: CBC&BMP&CPK&LFT in one week
Referrals:
Debbi Sheehan MD [Active] - in one month
Júnior Porras MD [Active] - in one month
Suman Alexandre DO [Family Provider] - in one week
Dave Green MD [Active] -
(Dr. Green or nurse practitioner
Ongoing smoking cessation, PFTs, screen for yearly low-dose lung cancer screening CT)
Prescriptions:
New
atorvastatin 40 mg Tablet
40 mg PO QPM Qty: 30 0RF
clopidogrel 75 mg Tablet
75 mg PO DAILY Qty: 15 0RF
aspirin 81 mg Tablet,Chewable
81 mg PO DAILY Qty: 30 0RF
Continued
famotidine [Pepcid] 40 mg Tablet
40 mg PO HS
esomeprazole magnesium [Nexium] 40 mg Capsule,Delayed Release(/Ec)
40 mg PO DAILY
spironolactone 50 mg Tablet
50 mg PO DAILY
eszopiclone [Lunesta] 3 mg Tablet
3 mg PO HS
diphenhydramine-acetaminophen [Acetaminophen PM] 25-500 mg Tablet
1 tab PO HSPRN PRN (Reason: sleep)
Discontinued
estradiol 1 mg Tablet
1 mg PO DAILY
lisdexamfetamine [Vyvanse] 40 mg capsule
40 mg PO DAILY
Discharge Orders:
Discharge Patient (As Directed); Ordered 08/08/24
Ordered By: Travis Jaffe
Discharge Date and Time
Discharge Date/Time: 08/08/24 11:33
Print Language: DIVEHI
--- NOTE | 2024-08-08 11:54 | W.PN.HOSP.TC ---
Today's Communication/Plan
-
dc
Assessment / Plan
Assessment / Plan
PE:
Gen-AAOx3, NAD
HEENT-NC, AT, anicteric, clear oral mm bilateral frontal sinus TTP
Neck-supple
CV-reg, no M, +S1/S2
Lungs-clear B/L
Abd-soft, NT, ND
Musculoskeletal-no edema, no deformity
Skin-warm and dry
Neuro-AAOX3, she followed commands.
Psych-calm, cooperative
Ms. Estrada is a 49-year-old female with a medical history of GERD and ADHD who presented with dizziness and left-sided paresthesias. Symptom onset was upon waking. However, when driving to work she developed left chest tingling sensation that
radiated down her left arm and was also present in her left leg. When she arrived at work, she called EMS who transported her to [facility]. Per EMS, she had some repetitive questioning and expressive aphasia, and reported mild left-sided
facial droop. Of note she recently was started on estradiol hormone replacement therapy this past July 27. She is a half a pack per day current smoker x 20 years. She denies alcohol use. Family history is significant for father with
multiple CVAs who ultimately of complications from strokes in his early 60s. MRI at the time of admission showed large left cerebellar infarct. She has been admitted for further evaluation and management.
Acute CV/ Acute acute/subacute left SCA/PICA infarct
Left vertebral artery occlusion
-Initial MRI shows left cerebellar infarct, angiography shows left vertebral artery occlusion
-Acute recurrence of dizziness and left arm paresthesias this morning 08/05, repeat MRI was obtained and showed progression of prior infarct
She feels better, ready to go home, no hemodynamic instability
-Continue aspirin and Plavix intensity statin
-Patient was counseled at length regarding potential side effects of antiplatelet therapy and statin, she verbalized understanding
- discussed with neurologist, okay to discharge 08/08.
-Consulted to hematology for thrombophilia workup, f/w OP.
- PT/OT , okay for outpatient therapy, given prescription
- Discontinue clopidogrel after a total of 21 days of therapy
- normal Vitamin B12, folate,TSH
- LDL 127, on high intensity statin now, d/w pt potential side effects upon discharge. HDL 49 . Total cholesterol 199. TG 119
# leukocytosis, reactive
No fevers
# Hyponatremia, mild
Total discharge time spent to see the patient, examine the patient, review data and lab results, discuss discharge treatment plan with patient and nursing staff around 67 minutes
Anticipated Discharge: Today
Subjective/Interval History
-
Date of Service: August 08, 2024
Seen earlier
Anxious to go home
No headache/ vertigo
No worsening numbness in left finger.
Objective Data
-
Vital Signs:
Vital Signs
Temp Pulse Resp BP Pulse Ox
98.0 F 80 18 137/84 97
08/08/24 11:00 08/08/24 11:00 08/08/24 11:00 08/08/24 11:00 08/08/24 11:00
I&O
08/07/24 08/08/24 08/09/24
06:59 06:59 06:59
Intake Total 1090 / 1090 850 / 850
Output Total 250 / 250
Balance 840 / 840 850 / 850
[2024-08-09 15:14] LABS: Anti-Xa Qualitative Interp Not Performed (Not Present); Anticoagulant Med Neutralizati Not Performed (Not Performed); Hexagonal Phospholipid Confirm Not Performed s (<=7.9); Neutralized PTT-LA Ratio Not Performed (<=1.20); Neutralized dRVTT Screen Ratio Not Performed (<=1.20); PTT-LA Ratio 0.92 (<=1.20); Prothrombin Time 13.8 s (12.0-15.5); Thrombin Time Not Performed s (<=19.5); dRVTT 1.1 Mix Ratio Not Performed (<=1.20); dRVTT Confirmation Ratio Not Performed (<=1.20); dRVTT Screen Ratio 0.78 (<=1.20)
== END 2024-08-08 11:33 | disposition home or self-care (01) | DRG 65 ==
LOC: 4 WEST ACU 11:17
PROVIDERS: Internal Medicine Critical Care Medicine; Nurse Practitioner Family; Nurse Practitioner Primary Care; ADMITTING PHYSICIAN Internal Medicine; ATTENDING PHYSICIAN Internal Medicine; CONSULT PHYSICIAN Internal Medicine Critical Care Medicine; CONSULT PHYSICIAN Psychiatry & Neurology Neurology; EMERGENCY PHYSICIAN Emergency Medicine; FAMILY PHYSICIAN Internal Medicine; OTHER PHYSICIAN Internal Medicine Hematology & Oncology
DX: I63.549 Cerebral infarction due to unspecified occlusion or stenosis of unspecified cerebellar artery (principal); E87.1 Hypo-osmolality and hyponatremia; K21.9 Gastro-esophageal reflux disease without esophagitis; F17.210 Nicotine dependence, cigarettes, uncomplicated; F90.9 Attention-deficit hyperactivity disorder, unspecified type; I65.02 Occlusion and stenosis of left vertebral artery; E11.65 Type 2 diabetes mellitus with hyperglycemia; Z71.6 Tobacco abuse counseling; Z82.3 Family history of stroke
CPT/HCPCS: 70450; 70496; 70498; 70551; 71045; 80048; 80053; 80061; 80306; 80307; 82607; 82746; 82962; 83036; 83090; 83735; 84100; 84443; 85025; 85027; 85300; 85302; 85305; 85610; 85613; 85652; 85730; 86038; 86146; 86147; 86148; 86618; 87389; 90686; 92523; 93005; 93306; 97116; 97129; 97162; 97166; 97168; 97530; 99285; 99406; G0008; Q9967

== ENCOUNTER → 2024-10-26 15:03 | Outpatient (REF) | payer BC, SELFPAY | LOC: DHSLP 15:03 | PROVIDERS: ATTENDING PHYSICIAN Internal Medicine; FAMILY PHYSICIAN Internal Medicine | DX: G47.30 Sleep apnea, unspecified (principal); R06.83 Snoring | CPT/HCPCS: 95800 ==